=== PATIENT | male | born 1955 | race Caucasian/White ===

== ENCOUNTER → 2023-10-06 08:39 | Outpatient (REF) | payer OTHER, SELFPAY ==
[2023-10-06 08:50] VITALS: BP 137/80; BP_SYST 75
[2023-10-06 09:45] VITALS: BP 117/62; BP_SYST 71
[2023-10-06 10:01] VITALS: BP 126/74
[2023-10-06 11:38] LABS: Body Fluid Mononuclear 86.7 %; Body Fluid Polymorphonuclear 13.3 %; Body Fluid WBC 446 /CUMM
[2023-10-06 11:39] LABS: Body Fluid Second Tech SD
[2023-10-06 11:47] LABS: Body Fluid Albumin < 1.0 g/dl; Body Fluid Protein 2.1 g/dl
== END ==
LOC: RADI 08:39
PROVIDERS: ATTENDING PHYSICIAN Internal Medicine; FAMILY PHYSICIAN Family Medicine
DX: R18.8 Other ascites (principal)
CPT/HCPCS: 88305; 49083; 82042; 84157; 87015; 87070; 87205; 88112; 89051

== ENCOUNTER 2023-10-07 12:40 | Outpatient (RCR) | payer OTHER, SELFPAY | END 2023-10-07 23:59 | disposition home or self-care (01) | LOC: RPT 12:40 | PROVIDERS: ATTENDING PHYSICIAN Specialist; FAMILY PHYSICIAN Family Medicine | DX: C61 Malignant neoplasm of prostate (principal); M62.89 Other specified disorders of muscle; N39.3 Stress incontinence (female) (male); Z73.6 Limitation of activities due to disability | CPT/HCPCS: 97163; 97530 ==

== ENCOUNTER 2023-10-29 15:00 | Outpatient (RCR) | payer OTHER, SELFPAY | END 2023-10-29 23:59 | disposition home or self-care (01) | LOC: RPT 15:00 | PROVIDERS: ATTENDING PHYSICIAN Specialist; FAMILY PHYSICIAN Family Medicine | DX: C61 Malignant neoplasm of prostate (principal); M62.89 Other specified disorders of muscle; N39.3 Stress incontinence (female) (male); Z73.6 Limitation of activities due to disability; Z90.79 Acquired absence of other genital organ(s); Z98.890 Other specified postprocedural states | CPT/HCPCS: 97110; 97530 ==

== ENCOUNTER → 2023-11-11 10:16 | Outpatient (REF) | payer OTHER, SELFPAY | LOC: HWRAD 10:16 | PROVIDERS: ATTENDING PHYSICIAN Internal Medicine; FAMILY PHYSICIAN Family Medicine | DX: R18.8 Other ascites (principal) | CPT/HCPCS: 76700; 93975 ==

== ENCOUNTER → 2023-12-25 07:27 | Outpatient (REF) | payer OTHER, SELFPAY ==
[2023-12-25 07:47] VITALS: BP 148/67; BP_SYST 67
== END ==
LOC: RADI 07:27
PROVIDERS: ATTENDING PHYSICIAN Internal Medicine
DX: R18.8 Other ascites (principal); Z53.8 Procedure and treatment not carried out for other reasons
CPT/HCPCS: 76705

== ENCOUNTER → 2023-12-31 09:43 | Outpatient (REF) | payer OTHER, SELFPAY ==
[2023-12-31 13:04] LABS: % Eosinophils 4.6 % (0-6); % Immature Granulocytes 0.2 % (0-0.5); % Lymphocytes 17.3 % (20.5-51.1); % Monocytes 11.2 % (1.7-9.3); % Neutrophils 65.7 % (42.2-75.2); Absolute Eosinophils 0.2 10^3/uL (0-0.7); Absolute Lymphocytes 0.7 10^3/uL (1.2-3.4); Absolute Monocytes 0.5 10^3/uL (0.1-0.6); Absolute Neutrophils 2.7 10^3/uL (1.4-6.5); Hematocrit 35.3 % (39.0-52.0); Hemoglobin 11.7 g/dL (13.0-18.0); Mean Corp Hgb Conc. 33.1 g/dL (33.0-37.0); Mean Corpuscular Hgb 27.7 pg (27.0-31.0); Mean Corpuscular Volume 83.5 fL (80.0-94.0); Mean Platelet Volume 12.8 fL (7.4-10.4); Nucleated Red Blood Cells % 0 % (-); Platelet Count 56 10^3/uL (130-400); Red Blood Cell Count 4.23 10^6/uL (4.70-6.10); Red Cell Dist. Width 16.4 % (11.5-14.5); White Blood Cell Count 4.1 10^3/uL (4.8-10.8)
== END ==
LOC: HWLAB 09:43
PROVIDERS: ATTENDING PHYSICIAN Internal Medicine Hematology & Oncology; FAMILY PHYSICIAN Family Medicine
DX: D61.818 Other pancytopenia (principal); D50.9 Iron deficiency anemia, unspecified; D51.3 Other dietary vitamin B12 deficiency anemia; C61 Malignant neoplasm of prostate; C79.51 Secondary malignant neoplasm of bone
CPT/HCPCS: 36415; 85025

== ENCOUNTER → 2024-01-06 13:05 | Outpatient (REF) | payer OTHER, SELFPAY ==
[2024-01-06 16:01] LABS: % Basophils 0.9 % (0-2); % Eosinophils 4.7 % (0-6); % Immature Granulocytes 0.2 % (0-0.5); % Lymphocytes 19.9 % (20.5-51.1); % Monocytes 11.6 % (1.7-9.3); % Neutrophils 62.7 % (42.2-75.2); Absolute Eosinophils 0.2 10^3/uL (0-0.7); Absolute Lymphocytes 0.8 10^3/uL (1.2-3.4); Absolute Monocytes 0.5 10^3/uL (0.1-0.6); Absolute Neutrophils 2.7 10^3/uL (1.4-6.5); Hematocrit 34.6 % (39.0-52.0); Hemoglobin 11.4 g/dL (13.0-18.0); Mean Corp Hgb Conc. 32.9 g/dL (33.0-37.0); Mean Corpuscular Hgb 27.5 pg (27.0-31.0); Mean Corpuscular Volume 83.6 fL (80.0-94.0); Nucleated Red Blood Cells % 0 % (-); Platelet Count 57 10^3/uL (130-400); Red Blood Cell Count 4.14 10^6/uL (4.70-6.10); Red Cell Dist. Width 16.6 % (11.5-14.5); White Blood Cell Count 4.2 10^3/uL (4.8-10.8)
== END ==
LOC: HWLAB 13:05
PROVIDERS: ATTENDING PHYSICIAN Internal Medicine Hematology & Oncology; FAMILY PHYSICIAN Family Medicine
DX: D61.818 Other pancytopenia (principal); D50.9 Iron deficiency anemia, unspecified; D51.3 Other dietary vitamin B12 deficiency anemia; C61 Malignant neoplasm of prostate; C79.51 Secondary malignant neoplasm of bone
CPT/HCPCS: 36415; 85025

== ENCOUNTER → 2024-03-14 13:22 | Outpatient (REF) | payer OTHER, SELFPAY ==
[2024-03-14 15:53] LABS: % Eosinophils 4.1 % (0-6); % Immature Granulocytes 0.4 % (0-0.5); % Lymphocytes 15.8 % (20.5-51.1); % Monocytes 11.6 % (1.7-9.3); % Neutrophils 67.1 % (42.2-75.2); Absolute Basophils 0.1 10^3/uL (0-0.2); Absolute Eosinophils 0.2 10^3/uL (0-0.7); Absolute Lymphocytes 0.8 10^3/uL (1.2-3.4); Absolute Monocytes 0.6 10^3/uL (0.1-0.6); Absolute Neutrophils 3.2 10^3/uL (1.4-6.5); Hematocrit 35.9 % (39.0-52.0); Hemoglobin 12.3 g/dL (13.0-18.0); Mean Corp Hgb Conc. 34.3 g/dL (33.0-37.0); Mean Corpuscular Hgb 29.6 pg (27.0-31.0); Mean Corpuscular Volume 86.5 fL (80.0-94.0); Mean Platelet Volume 13.8 fL (7.4-10.4); Nucleated Red Blood Cells % 0 % (-); Platelet Count 63 10^3/uL (130-400); Red Blood Cell Count 4.15 10^6/uL (4.70-6.10); Red Cell Dist. Width 14.3 % (11.5-14.5); White Blood Cell Count 4.8 10^3/uL (4.8-10.8)
[2024-03-14 16:06] LABS: ALT (SGPT) 20 U/L (0-50); AST (SGOT) 30 U/L (17-59); Albumin 4.3 g/dl (3.5-5.0); Alkaline Phosphatase 41 U/L (38-126); Blood Urea Nitrogen 18 mg/dl (9-20); Calcium 9.6 mg/dl (8.4-10.2); Carbon Dioxide 27 mmol/L (22-30); Chloride 103 mmol/L (98-107); Glucose 104 mg/dl (70-99); Potassium 4.4 mmol/L (3.5-5.1); Sodium 138 mmol/L (135-145); Total Bilirubin 0.6 mg/dl (0.2-1.3); Total Protein 7.3 g/dl (6.3-8.2); eGFR > 60.00
[2024-03-14 16:36] LABS: PSA, Total - Diagnostic < 0.06 ng/ml (0.0-4.0)
== END ==
LOC: HWLAB 13:22
PROVIDERS: ATTENDING PHYSICIAN Internal Medicine Hematology & Oncology; FAMILY PHYSICIAN Family Medicine
DX: C79.51 Secondary malignant neoplasm of bone (principal); D61.818 Other pancytopenia; D50.9 Iron deficiency anemia, unspecified; C61 Malignant neoplasm of prostate
CPT/HCPCS: 36415; 80053; 84153; 85025

== ENCOUNTER → 2024-04-12 08:30 | Outpatient (REF) | payer OTHER, SELFPAY ==
[2024-04-12 08:54] VITALS: BP 149/82; BP_SYST 67
== END ==
LOC: RADI 08:30
PROVIDERS: ATTENDING PHYSICIAN Nurse Practitioner Family
DX: R18.8 Other ascites (principal); Z53.8 Procedure and treatment not carried out for other reasons
CPT/HCPCS: 76705

== ENCOUNTER → 2024-05-18 08:30 | Outpatient (REF) | payer OTHER, SELFPAY ==
[2024-05-18 08:48] LABS: % Basophils 0.8 % (0-2); % Eosinophils 3.6 % (0-6); % Immature Granulocytes 0.3 % (0-0.5); % Lymphocytes 16.7 % (20.5-51.1); % Monocytes 11.4 % (1.7-9.3); % Neutrophils 67.2 % (42.2-75.2); Absolute Eosinophils 0.1 10^3/uL (0-0.7); Absolute Lymphocytes 0.6 10^3/uL (1.2-3.4); Absolute Monocytes 0.4 10^3/uL (0.1-0.6); Absolute Neutrophils 2.4 10^3/uL (1.4-6.5); Hematocrit 36.3 % (39.0-52.0); Hemoglobin 12.7 g/dL (13.0-18.0); Mean Corpuscular Hgb 30.2 pg (27.0-31.0); Mean Corpuscular Volume 86.2 fL (80.0-94.0); Mean Platelet Volume 11.6 fL (7.4-10.4); Platelet Count 54 10^3/uL (130-400); Red Blood Cell Count 4.21 10^6/uL (4.70-6.10); Red Cell Dist. Width 13.7 % (11.5-14.5); White Blood Cell Count 3.6 10^3/uL (4.8-10.8)
[2024-05-18 10:14] LABS: ALT (SGPT) 23 U/L (0-50); AST (SGOT) 38 U/L (17-59); Albumin 4.5 g/dl (3.5-5.0); Alkaline Phosphatase 49 U/L (38-126); Blood Urea Nitrogen 25 mg/dl (9-20); Calcium 9.7 mg/dl (8.4-10.2); Carbon Dioxide 27 mmol/L (22-30); Chloride 100 mmol/L (98-107); Direct Bilirubin 0.3 mg/dl (0.0-0.4); Glucose 120 mg/dl (70-99); Sodium 140 mmol/L (135-145); Total Bilirubin 0.5 mg/dl (0.2-1.3); Total Protein 7.5 g/dl (6.3-8.2); eGFR > 60.00
[2024-05-18 10:15] LABS: INR 1.22; PT 15.4 Sec (11.4-14.6)
[2024-05-18 10:46] LABS: AFP Male/Tumor Marker 3.32 ng/ml
[2024-05-19 21:35] LABS: PSA Total <0.1 ng/mL (0.0-4.0)
== END ==
LOC: OIDL 08:30
PROVIDERS: ATTENDING PHYSICIAN Internal Medicine Hematology & Oncology; FAMILY PHYSICIAN Family Medicine; OTHER PHYSICIAN Nurse Practitioner Family
DX: D61.818 Other pancytopenia (principal)
CPT/HCPCS: 36415; 80053; 82105; 82248; 84153; 84154; 85025; 85610

== ENCOUNTER 2024-05-31 13:30 | Inpatient (IN) | payer OTHER, MEDICARE, SELFPAY ==
[2024-05-31] VITALS (29 sets, daily range): BP systolic 98–182; BP diastolic 52–166; BMI 32.9; BMI 32.3
[2024-05-31] MEDS: NSS 1000 IV ×2 (11:18→18:08)
[2024-05-31] MEDS: PROTONIX 100 IV ×2 (11:20→19:37)
[2024-05-31 11:32] LABS: INR 1.48; PT 17.8 Sec (11.4-14.6)
[2024-05-31 11:33] LABS: APTT 24.1 Sec (23.4-35.0)
[2024-05-31 11:35] LABS: ALT (SGPT) 22 U/L (0-50); AST (SGOT) 28 U/L (17-59); Albumin 3.4 g/dl (3.5-5.0); Alkaline Phosphatase 29 U/L (38-126); Blood Urea Nitrogen 47 mg/dl (9-20); Calcium 8.4 mg/dl (8.4-10.2); Carbon Dioxide 27 mmol/L (22-30); Chloride 103 mmol/L (98-107); Estimated Creatinine Clearance 115 ml/min; Glucose 185 mg/dl (70-99); Potassium 4.4 mmol/L (3.5-5.1); Sodium 138 mmol/L (135-145); Total Bilirubin 0.9 mg/dl (0.2-1.3); Total Protein 5.7 g/dl (6.3-8.2); eGFR > 60.00
[2024-05-31 11:36] LABS: % Basophils 0.6 % (0-2); % Eosinophils 1.1 % (0-6); % Immature Granulocytes 0.7 % (0-0.5); % Lymphocytes 7.9 % (20.5-51.1); % Monocytes 10.2 % (1.7-9.3); % Neutrophils 79.5 % (42.2-75.2); Absolute Basophils 0.1 10^3/uL (0-0.2); Absolute Eosinophils 0.1 10^3/uL (0-0.7); Absolute Immature Granulocytes 0.1 10^3/uL (0-0.05); Absolute Lymphocytes 0.7 10^3/uL (1.2-3.4); Absolute Monocytes 0.9 10^3/uL (0.1-0.6); Hematocrit 27.8 % (39.0-52.0); Hemoglobin 9.6 g/dL (13.0-18.0); Mean Corp Hgb Conc. 34.5 g/dL (33.0-37.0); Mean Corpuscular Hgb 30.1 pg (27.0-31.0); Mean Corpuscular Volume 87.1 fL (80.0-94.0); Nucleated Red Blood Cells % 0 % (-); Platelet Count 85 10^3/uL (130-400); Red Blood Cell Count 3.19 10^6/uL (4.70-6.10); Red Cell Dist. Width 14.3 % (11.5-14.5); White Blood Cell Count 8.8 10^3/uL (4.8-10.8)
[2024-05-31] MEDS: ZOFRAN 4 MG IV (11:39)
--- NOTE | 2024-05-31 11:44 | ED.GENMED ---
History of Present Illness
General
Chief Complaint: Vomiting Blood
Time Seen by Provider: 05/31/24 11:04
History of Present Illness
History of Present Illness:
68-year-old male with history of prostate CA, hyperlipidemia, hypertension presenting to the emergency department for vomiting blood. Patient reports that he vomited blood 3 times this morning, since 2 AM, large-volume. Also reports black stool.
Denies history of GI bleed. He is not on any blood thinners, denies excessive alcohol abuse or NSAID use. He reports he is on Erleada for his prostate, and since being on this medication has given him GI distress, however no GI bleed. Denies
associated abdominal pain, chest pain, difficulty breathing, however reports generally feeling unwell. Denies additional acute medical complaints
Past History
Past History
ED Past Medical History: CAD, HTN, Hypercholesterolemia and FL (2 stents on Brulenta)
ED Past Surgical History: Negative Cardiac
Social History
Tobacco: Non-smoker
Alcohol: Occasional
Drug: None
Personal:
Living: with family
Employment: Employed
Family History
Family History: Other (Noncontributory); Negative Early CAD
Phy Exam
Physical Exam
Physical Exam:
General: Slightly pale, no acute distress
HEENT: protecting airway
Neck: appears supple
CV: Tachycardic, regular rhythm, no evidence of cyanosis
Resp: No accessory muscle use, no increased work of breathing, lungs clear to auscultation bilaterally
Abd: Soft and non-distended, no tenderness to palpation, normal bowel sounds
Extremities: No deformities, no swelling
Neuro: alert, no focal neurologic deficit
: deferred
Rectal: deferred
Psych: Normal affect
Skin: Intact
Course
Orders/Labs/Results
Orders:
Orders
05/31/24 11:04
Cardiac Monitoring- Treatment ONCE
IV Insert/Care/Rem.- Treatment PRN
O2 Therapy [RESP] Urgent
Titrate/Wean O2 to maintain O2 sat greater than (%): 93
Special Instructions: MAINTAIN CONTINOUS O2 SATS > OR = 93%
Pulse Ox/spot Check [RESP] Urgent
Quantity: 1
Special Instructions: ON ROOM AIR
05/31/24 11:08
Type+Screen Urgent
Complete Blood Count/With Diff Urgent
Comprehensive Metabolic Panel Urgent
PTT Urgent
Prothrombin Time Urgent
05/31/24 11:11
0.9% Sodium Chloride 1000 ml [Nss] 1,000 ml IV BOLUS
Pantoprazole 80 mg/100 ml Nss [Protonix] 80 mg in 100 ml IV NOW
05/31/24 11:39
Ondansetron Injectable [Zofran] 4 mg .ROUTE .STK-MED ONE
Ondansetron Injectable [Zofran] 4 mg IV NOW STA
05/31/24 11:47
ABO2 Urgent
BBK Wristband Number:
Associate notified that ABO2 has been ordered: [id number]
Date: 05/31/24
Time: 11:22
Network Planner ID: [id number]
05/31/24 12:22
CefTRIAXone [Rocephin] 1,000 mg IV NOW STA
Octreotide 600 mcg INFUSION 50 mcg/hr NOW X 1 BAG Octreotide Acetate [Sandostatin] 600 mcg 0.9% Sodium Chloride 500 ml [Nss] 500 ml IV NOW
Abnormal Lab Results
05/31/24
11:08
RBC 3.19 L 10^6/uL
(4.70-6.10)
Hgb 9.6 L g/dL
(13.0-18.0)
Hct 27.8 L %
(39.0-52.0)
Plt Count 85 L 10^3/uL
(130-400)
Abs Immat Gran (auto) 0.1 H 10^3/uL
(0-0.05)
Absolute Neuts (auto) 7.0 H 10^3/uL
(1.4-6.5)
Absolute Lymphs (auto) 0.7 L 10^3/uL
(1.2-3.4)
Absolute Monos (auto) 0.9 H 10^3/uL
(0.1-0.6)
Immature Gran % 0.7 H %
(0-0.5)
Neutrophils % 79.5 H %
(42.2-75.2)
Lymphocytes % 7.9 L %
(20.5-51.1)
Monocytes % 10.2 H %
(1.7-9.3)
PT 17.8 H Sec
(11.4-14.6)
BUN 47 H mg/dl
(9-20)
Glucose 185 H mg/dl
(70-99)
Alkaline Phosphatase 29 L U/L
(38-126)
Total Protein 5.7 L g/dl
(6.3-8.2)
Albumin 3.4 L g/dl
(3.5-5.0)
05/31/24 11:08
05/31/24 11:08
Vital Signs
Initial and Last Documented VS:
Initial Vital Signs
BP
98/67
05/31/24 11:04
Last Documented Vital Signs
Temp Pulse Resp BP Pulse Ox
97.8 F 112 16 98/67 92
05/31/24 11:05 05/31/24 11:06 05/31/24 11:06 05/31/24 11:05 05/31/24 11:06
MDM/Problems Addressed
MDM/Problems Addressed:
68-year-old male with history of prostate cancer, hypertension, hyperlipidemia presenting for concern of GI bleed. Vital signs on arrival significant for hypotension and tachycardia.
On exam, patient with no active emesis, no significant distress, however does appear slightly pale. Unclear etiology of symptoms, no thinners, no excessive alcohol use, no NSAID use. Does note that he has been having issues with a medication that
he has been on, Erleda, unclear if this could be contributing to his symptoms. Will start resuscitation with IV fluids and obtain laboratory analysis. Will also start pantoprazole drip and consult with GI.
11:45 - Patient had large volume episode of hematemesis. Now resolved, protecting airway. Message sent to GI
12:20 -GI at bedside, patient is known to them. Patient with history of cirrhosis and ascites. Plan for endoscopy. Administering ceftriaxone and octreotide
*EKG
Interpreted by ED Provider?: Yes
EKG Intrepretation Date: 05/31/24
EKG Intrepretation Time: 11:49
Interpretation: normal
Comparison EKG: no changes (08/20/15)
Heart Rate: 109
Rate: tachycardiac
Rhythm: sinus
QRS Pattern: right bundle branch block and other (LAFB)
Ischemia: no ischemia
*Critical Care Note
Total Time (30-74mins, 75-104mins- exclusive of procedures): 40
comment:
The high probability of a clinically significant, sudden or life threatening deterioration of the gastrointestinal/GI bleed system(s) required my full and direct attention, intervention and personal management. The aggregate critical care time was
40 minutes. This time is in addition to time spent performing reported procedures but includes the following:
[x] Data Review and interpretation
[x] Patient assessment and monitoring of vital signs
[x] Documentation
[x] Medication orders and management
ED Attending Note
-
Portions of this chart may have been created with voice recognition software.� Occasional wrong word or��sound alike� substitutions may have occurred due to the inherent limitations of voice recognition software.
Discharge Plan
Departure
Prescriptions:
No Action
atorvastatin 40 MG tablet
40 mg PO QPM Qty: 30 6RF
aspirin 81 MG tablet,chewable
81 mg PO DAILY Qty: 0 0RF
lisinopril 2.5 MG tablet
2.5 mg PO DAILY Qty: 30 6RF
metoprolol tartrate 25 MG tablet
25 mg PO BID Qty: 60 6RF
ascorbic acid (vitamin C) [Vitamin C] 500 mg Tablet
500 mg PO BID
pantoprazole 40 mg Tablet,Delayed Release (Dr/Ec)
40 mg PO DAILY
folic acid 800 mcg Tablet
0.8 mg PO DAILY
cyanocobalamin (vitamin B-12) [Vitamin B-12] 100 mcg Tablet
100 mcg PO DAILY
furosemide 40 mg Tablet
40 mg PO DAILY
calcium carbonate-vitamin D3 [Calcium + D] 600 mg-5 mcg (200 unit) Tablet
1 tab PO BID
Erleada 60 mg Tablet
120 mg PO BID
spironolactone 100 mg tablet
100 mg PO DAILY
Referrals:
Braden Avila MD [Family Provider] -
Interventions
Interventions:
*Risk Screen - Suicide Last Done: 05/31/24 11:43
*Neglect/Abuse Screening Last Done: 05/31/24 11:43
*ED COVID-19 Vaccine History Last Done: 05/31/24 11:09
[facility] Assessment Last Done: 05/31/24 11:06
ED- Cardiac Assessment Last Done: 05/31/24 11:06
ED- Pulmonary Assessment Last Done: 05/31/24 11:06
Discharge Date and Time
Print Language: CAP[place] VERDEAN
--- NOTE | 2024-05-31 12:32 | HPS.HSE ---
Addendum entered and electronically signed by CARLY Bagley 05/31/24 14:29:
UPGRADE to ICU
Pt s/p Banding 5 esophageal varices
Original Note:
Family Physician
-
Family Physician: Braden Avila
Chief Complaint
-
Hemataemesis with clots
History of Present Illness
68-year-old male who states he came home from work last evening and was nauseous. He reports taking a Protonix not eating dinner and going to bed. He woke up during the night once to void and then woke up again this morning after voiding he stood
up he said and then started vomiting bright red blood with clots. He reports he had episode of vomiting blood with clots here while in the ED. He denies current headache, fever, chills, indigestion, chest pain, palpitations, shortness breath,
cough, diarrhea, urinary symptoms.
He has past medical history cirrhosis 2/2 hepatitis C treated greater than 15 years ago chronic thrombocytopenia, esophageal varices, HTN, prostate cancer Dx July 2023 with prostatectomy then repeat prostate borders with cancerous tissue. He
reports mets to bone November 2023 for started on hormonal agent, CAD/FL/cardiac stent 07/27/2015.
Medical History
Past Medical History
Past Medical History: Reports Other
Additional Past Medical History:
cirrhosis/ varices
chronic thrombocytopenia
esophageal varices
Prostate ca mets bone November 2023
HTN
prostate cancer current remission on current hormonal agent
CAD/FL/cardiac stent 07/27/2015
Hx RBBB
Iron deficiency anemia
Past Surgical History: Reports Other
Additional Past Surgical History:
Colonoscopy
Left hand with removal 8-6
Angioplasty with stenting 07/10/2015
Right knee scope 2018
prostatectomy /2 prostate ca July 2023
Social History
Tobacco: Non-smoker
Alcohol: Occasional (Had 1 drink of 1 proximally 5 weeks ago reports prior only was ever a social drinker)
Personal:
Living: With Family ()
Employment: Employed
Family History
Family History: Other (Mother history of ovarian cancer in her 80s, father history of prostate cancer in his 50s at 81 of leukemia)
Allergies / Home Medications
Allergies reflects when Allergies were last updated in [facility].
Home Medications with original date entered in [facility]
Allergy/Medication List:
Allergies
Allergy/AdvReac Type Severity Reaction Status Date / Time
No Known Allergies Allergy Verified 04/12/24 09:04
Home Medications
aspirin 81 mg chewable tablet 81 mg PO DAILY ##0 08/11/15
atorvastatin 40 mg tablet 40 mg PO QPM ##30 08/11/15
lisinopril 2.5 mg tablet 2.5 mg PO DAILY ##30 08/11/15
metoprolol tartrate 25 mg tablet 25 mg PO BID ##60 08/11/15
ascorbic acid (vitamin C) 500 mg tablet (Vitamin C) 500 mg PO BID Supplement 07/24/23
folic acid 800 mcg tablet 0.8 mg PO DAILY Supplement 07/24/23
pantoprazole 40 mg tablet,delayed release 40 mg PO DAILY Gastrointestinal Issue 07/24/23
cyanocobalamin (vitamin B-12) 100 mcg tablet (Vitamin B-12) 100 mcg PO DAILY 10/06/23
apalutamide 60 mg tablet (Erleada) 120 mg PO BID 12/25/23
calcium 600 mg (as carbonate)-vitamin D3 5 mcg (200 unit) tablet 1 tab PO BID 12/25/23
furosemide 40 mg tablet 40 mg PO DAILY 12/25/23
spironolactone 100 mg tablet 100 mg PO DAILY 05/31/24
Review of Systems
-
History Source: Patient and Family ( Shirin at bedside)
A 12 point ROS was completed and negative except as noted: Yes
Constitutional: Denies Fever, Fatigue or Chills
EENT: Denies Sore Throat or Runny Nose
Respiratory: Denies Cough or Trouble Breathing
Cardiac: Denies Chest Pain, Diaphoresis, Palpitations or Syncope
Abdomen/GI: Reports Nausea and Vomiting (Bright red blood with clots); Denies Abdominal Pain, Diarrhea, Constipated, Bloody Stools or Black Stools
: Denies Dysuria, Frequency, Flank Pain, Incontinence, Difficulty Voiding or Urgency
Musculoskeletal: Denies Joint Pain, Joint Swelling or Edema
Skin: Denies Itching or Rash
Neurological: Denies Dizzy, Headache or Weakness
Endocrine: Reports No Symptoms
Hematologic/Lymphatic: Reports No Symptoms
Psych: Reports Calm
Physical Exam
Vital Signs
Vital Signs
Temp Pulse Resp BP Pulse Ox
97.8 F 112 16 98/67 92
05/31/24 11:05 05/31/24 11:06 05/31/24 11:06 05/31/24 11:05 05/31/24 11:06
Physical Exam
General: Comfortable and Conversant; No Fever or Chills
HEENT: NormoCephalic, Anicteric, Moist mucous membranes, PERRLA, [place] Conjunctivae and No Ptosis
Respiratory: Clear; No Wheezes, Rales or Rhonchi
Cardiac: S1/S2 and Tachycardia; No Murmur, Rub, Gallop or Peripheral Edema
GI: Soft, Non Tender, Non Distended, Normal Bowel Sounds and No Hepatosplenomegaly
Rectal: Deferred by Provider
Genito-urinary: Deferred by me
Musculoskeletal: No Clubbing, No Cyanosis and No Edema
Skin: Warm and Dry; No Rash or Jaundice
Neuro: AO x 3, No Motor Deficits, Nonfocal/grossly intact and No Sensory Deficits; No Slurred Speech, Facial Droop, Tremors or Sedated
Psych: Calm
Laboratory Results
-
05/31/24 11:08
05/31/24 11:08
Laboratory Results
PT 17.8 Sec (11.4-14.6) H 05/31/24 11:08
INR 1.48 05/31/24 11:08
APTT 24.1 Sec (23.4-35.0) 05/31/24 11:08
Total Bilirubin 0.9 mg/dl (0.2-1.3) 05/31/24 11:08
AST 28 U/L (17-59) 05/31/24 11:08
ALT 22 U/L (0-50) 05/31/24 11:08
Alkaline Phosphatase 29 U/L (38-126) L 05/31/24 11:08
Impression/Plan
-
Impression/plan:
Admit to IMU
#Hematemesis concern upper GI bleed 2/2 possible esophageal varices
#Hx esophageal varices 11/19/2021 EGD
#Hx iron deficiency
Hgb 9.6
Type and screen, obtain blood consent
-N.p.o. for EGD today
-IV PPI bolus and drip
-Octreotide drip
-IV Rocephin
-Consult GI
-Follow H&H
-Hold aspirin 81 mg daily
EGD 11/19/2021: Esophageal varices without bleeding, portal HTN, duodenitis without bleeding, neoplasm uncertain behavior small intestine
#Hypotension secondary to blood volume loss
BP 98/67
-Hold furosemide 40 mg daily, lisinopril 2.5 mg daily, Toprol tartrate 25 mg twice daily, spironolactone 100 mg p.o. daily
#Chronic thrombocytopenia secondary to cirrhosis
Plt 85 prior baselines mid 50s
Follow CBC
#Cirrhosis 2/2 Hep C
#Hx Ascites
-Patient reports had 1 glass of wine a few weeks ago otherwise reports only ever occasionally drank
-Reports was treated for hepatitis C approximately 15 years ago
-Hold Lasix, spironolactone due to hypotension
#Prostate cancer Dx July 2023 mets to pelvis November 2023
-Hold Erleada
#CAD/FL
#RBBB
#Hx angioplasty with stenting 07/10/2015
-Hold aspirin 81 mg daily, atorvastatin 40 mg every afternoon, metoprolol tartrate 25 mg twice daily
DVT prophylaxis
SCDs
Full code
[2024-05-31] MEDS: ROCEPHIN 1000 MG IV (12:37)
--- NOTE | 2024-05-31 12:40 | CON.GI ---
Addendum entered and electronically signed by Delon Granda MD 05/31/24 14:01:
I saw and examined the patient.
The COMMUNITY HEALTH PROGRAM COORDINATOR or PA's note was reviewed and I agree with the note.
Comment:
Pt known to us as outpatient with ESLD with ascites that developed after prostatectomy. Hx of varices grade 2 back in 05/29. He does see hepatology (Dr. Agrawal) as well. He had refused an endoscopy due to treatment for metastatic prostate ca. He
came to the ER with acute hematemesis and has had 4 episodes. hypotension, hgb 9.8. He has small amount of ascites by past u/s
abd: soft, nontender
alert oriented
impression:
UGI bleed, likely variceal
ascites
ESLD
prostate ca
plan:
IV PPI ggt
IV octreotide
urgent EGD
avoid nsaids
ceftriaxone
monitor coags, cbc and lfts
Original Note:
Consultation
-
Date/Time Consultation Requested: 05/31/241214
Date/Time Consultation Performed: 05/31/241214
Requesting Provider: Dr. Byrnes
Performing Provider: Dr. Granda/CARLY Irene
Reason for Consultation: Upper GI Bleed
Medical History
Chief Complaint / HPI
Chief Complaint: vomiting blood
History of Present Illness:
68-year-old male with past medical history of decompensated cirrhosis (ascites/varices), on beta-rosa and diuretics due to hepatitis C which was cured in the past, no history of encephalopathy, history of portal vein thrombosis, thrombocytopenia,
history of metastatic prostate cancer status post prostatectomy with mets to the bone currently on hormone therapy (Erleada) with undetectable PSA who presents to the ER with acute onset of hematemesis and melena asked to evaluate for the same. The
patient states this morning he had 2 large episodes of hematemesis. This was followed by an episode of melena. He is on aspirin 81 mg daily otherwise no NSAIDs. He denies any chest pain, shortness of breath or dizziness. He proceeded to come to
the emergency room. While in the emergency room he did have a large volume of projectile hematemesis. His vital signs are stable. He had 1 glass of wine a couple weeks back otherwise no significant alcohol intake. His last appoint with Dr. Agrawal
was a few months back. His last appoint with hematology was in March. He denies any fevers, chills, hematochezia, dysphagia or dyne aphasia. No early satiety or unintentional weight loss. The patient is currently afebrile 97.8, pulse 112, BP
98/67, respirations 16 and O2 sat 92% on room air. WBC count 8.8, hemoglobin 9.6 (down from 12.7 on 05/18/2024), hematocrit 27.8, platelets 85, PT 17.8, INR 1.48, PTT 24.1, sodium 138, potassium 4.4, chloride 103, CO2 27, BUN 47, creatinine 0.8,
glucose 185, total bilirubin 0.9, AST 28, ALT 22, alk phos 29, albumin 3.4
Past Medical History
Past Medical History: CAD (Drug-eluting stent (2014)), Cancer (Prostate cancer with mets to bone), HTN, Hypercholesterolemia and Other (Cirrhosis secondary to hepatitis C, ascites, esophageal varices, thrombocytopenia)
Past Surgical History: Urological (Robotic prostatectomy, reclosure of 2 robotic trocar sites due to leaking of ascites 08/12/2023, paracentesis) and Other (Radical prostatectomy, umbilical hernia repair, bladder neck reconstruction and lymph node
removal)
Social History
Tobacco: Non-Smoker
Alcohol: Occasional
Drug: None
Personal:
Living: With Family
Employment: Retired
Family History
Family History: Other (Mother and father with history of colon cancer)
Allergies / Home Medications
Allergy/AdvReac Type Severity Reaction Status Date / Time
No Known Allergies Allergy Verified 04/12/24 09:04
�Medication �Instructions �Recorded
aspirin 81 mg chewable tablet 81 mg PO DAILY ##0 08/11/15
atorvastatin 40 mg tablet 40 mg PO QPM ##30 08/11/15
lisinopril 2.5 mg tablet 2.5 mg PO DAILY ##30 08/11/15
metoprolol tartrate 25 mg tablet 25 mg PO BID ##60 08/11/15
ascorbic acid (vitamin C) 500 mg 500 mg PO BID Supplement 07/24/23
tablet (Vitamin C)
folic acid 800 mcg tablet 0.8 mg PO DAILY Supplement 07/24/23
pantoprazole 40 mg tablet,delayed 40 mg PO DAILY Gastrointestinal 07/24/23
release Issue
cyanocobalamin (vitamin B-12) 100 100 mcg PO DAILY 10/06/23
mcg tablet (Vitamin B-12)
apalutamide 60 mg tablet (Erleada) 120 mg PO BID 12/25/23
calcium 600 mg (as 1 tab PO BID 12/25/23
carbonate)-vitamin D3 5 mcg (200
unit) tablet
furosemide 40 mg tablet 40 mg PO DAILY 12/25/23
spironolactone 100 mg tablet 100 mg PO DAILY 05/31/24
Review of Systems
-
All other systems: A 12 pt ROS was Negative except as stated above in HPI
Vital Signs
Temp Pulse Resp BP Pulse Ox
97.8 F 112 16 98/67 92
05/31/24 11:05 05/31/24 11:06 05/31/24 11:06 05/31/24 11:05 05/31/24 11:06
Physical Exam
Exam
General: No Apparent Distress
HEENT: Anicteric
Respiratory: Clear
Cardiac: Regular Rhythm
GI: Soft, Non Tender, Non Distended and Normal Bowel Sounds
Musculoskeletal: Edema (Trace edema bilaterally, petechiae bilateral lower extremities)
Skin: Warm and Dry
Neuro: AO x 3 and Other (No asterixis)
Psych: Calm
Results
WBC 8.8 10^3/uL (4.8-10.8) 05/31/24 11:08
Hgb 9.6 g/dL (13.0-18.0) L 05/31/24 11:08
Hct 27.8 % (39.0-52.0) L 05/31/24 11:08
MCV 87.1 fL (80.0-94.0) 05/31/24 11:08
Plt Count 85 10^3/uL (130-400) L 05/31/24 11:08
Absolute Neuts (auto) 7.0 10^3/uL (1.4-6.5) H 05/31/24 11:08
PT 17.8 Sec (11.4-14.6) H 05/31/24 11:08
INR 1.48 05/31/24 11:08
APTT 24.1 Sec (23.4-35.0) 05/31/24 11:08
Sodium 138 mmol/L (135-145) 05/31/24 11:08
Potassium 4.4 mmol/L (3.5-5.1) 05/31/24 11:08
Chloride 103 mmol/L (98-107) 05/31/24 11:08
Carbon Dioxide 27 mmol/L (22-30) 05/31/24 11:08
BUN 47 mg/dl (9-20) H 05/31/24 11:08
Creatinine 0.8 mg/dL (0.7-1.3) 05/31/24 11:08
Calcium 8.4 mg/dl (8.4-10.2) 05/31/24 11:08
Total Bilirubin 0.9 mg/dl (0.2-1.3) 05/31/24 11:08
AST 28 U/L (17-59) 05/31/24 11:08
ALT 22 U/L (0-50) 05/31/24 11:08
Alkaline Phosphatase 29 U/L (38-126) L 05/31/24 11:08
Diagnostic Image Results:
None this admission
Prior GI Procedures:
--04/12/2024 ultrasound abdomen: Mild volume of ascites not sufficient for percutaneous drainage
--11/11/2023 US abdomen with doppler: Main portal vein is patent with normal direction of flow. No evidence for portal vein thrombosis on today's exam. Not mentioned above, the right and left portal veins are visualized and patent. 4 mm polyp within
the gallbladder. Given size and morphology, no further imaging follow-up is recommended for this benign polyp. Coarsening of hepatic echotexture, a nonspecific finding suggesting hepatocellular disease. No evidence of a focal hepatic lesion.
Splenomegaly, similar to prior exams. No ascites is demonstrated on today's exam. Limited visualization of the pancreas.�������
--10/29/2023 PET scan: multiple lesions seen throughout the skeletal bone.�������
--10/06/23 paracentesis: 4600mL removed, clear yellow ascitic fluid. WBC 446, PMN 13.3�������
--09/30/23 labs: WBC 3.3, hgb 11.9, plt 70,000, INR 1.25, Na 138, K 3.9, BUN 21, Cr 0.6, TB 1.1, AST33, ALT 27, Alk phos 61, AFP 2.91, PSA 117.0�������
--11/19/2021 EUS: EV1 varices. Duodenitis w/o duodenal varices, otherwise normal EUS�������
--11/19/2021 EGD: Grade II esophageal varices. Portal hypertensive gastropathy. Biopsied. Duodenitis. Biopsied. Pathnegative for H pylori, celiac.�������
--02/28/2020 colonoscopy, Dr. Tong: One 18 to 20 mm polyp in the sigmoid colon, removed�with a hot snare. Resected and retrieved. Ligated. Injected. Clips were placed. One 3 to 4 mm polyp in the descending colon, removed with a jumbo cold
forceps. Resected and retrieved. Clip was placed. Diverticulosis in the sigmoid colon, in the descending colon, in the transverse colon and in the cecum. Rectal varices. The examined portion of the ileum was normal. One hyperplastic polyp, one TV
adenoma with negative margins.�������
--10/04/2019 EGD: Grade II esophageal varices. Z-line irregular, 40 cm from the incisors. Nodule found in the esophagus. Gastritis. Biopsied. No Gastric Varices. Grade II duodenal varices. Normal second portion of the duodenum. Biopsied. Path
negative.
Assessment / Plan
-
68-year-old male with past medical history of decompensated cirrhosis (ascites/varices), on beta-rosa and diuretics due to hepatitis C which was cured in the past, no history of encephalopathy, history of portal vein thrombosis, thrombocytopenia,
history of metastatic prostate cancer status post prostatectomy with mets to the bone currently on hormone therapy (Erleada) with undetectable PSA who presents to the ER with acute onset of hematemesis and melena asked to evaluate for the same. Last
EGD was in 2021 where he had grade 2 esophageal varices. Portal hypertensive gastropathy. Currently presents with 3 large episodes of hematemesis concerning for esophageal variceal bleed. Hemoglobin is currently 9.6 down from 12.7 approximate 11
days ago with tachycardia and hypotension. Discussed with patient, , ER physician and admitting team. Plan for admission to IMU. Protonix drip, octreotide bolus and drip, 2 large-bore IV access, ceftriaxone, n.p.o. and plan for emergent EGD.
Patient is currently NPO. Patient agreeable. Blood consent obtained by internal medicine. Patient has been crossmatched.
Impression:
Upper GI bleed-> concerns for variceal bleed
Cirrhosis, decompensated with history of varices/ascites-> MELD 10
Thrombocytopenia-> platelets 85
History of metastatic prostate cancer, on Erleada
Plan:
-N.p.o.
-Pantoprazole drip
-Octreotide bolus/drip
-Ceftriaxone 1 g daily IV
-Plan for EGD today
-Check CBC every 6 hours, transfuse for hemoglobin less than 7
-CBC, BMP, LFTs, PT/INR in a.m.
-Further recommendations to be forthcoming
-
-
Thank you for consultation and allowing me to participate in the patient's care. Please call the hot wound spring production supervisor GI physician during the after hours with any questions or concerns.
[2024-05-31] MEDS: SANDOSTATIN 500.6 MCG IV ×2 (13:30→23:47)
--- NOTE | 2024-05-31 13:44 | W.PN.UPDATE ---
Update Note
Progress Note Update
This is an addendum to the H&P written by Monica Shelby on 05/31/2024. Patient seen and examined independently with SCIENCE EDUCATION PROFESSOR.
68-year-old male past medical history of decompensated cirrhosis with varices secondary to hepatitis C cured in the past, history of portal vein thrombosis, thrombocytopenia, metastatic prostate cancer status post prostatectomy with metastases to
bone currently on hormone therapy with Nicole CAD presenting with hematemesis and black stool concerning for variceal bleeding associated with blood pressure in the 90s systolic. Hemoglobin of 9.6.
NPO. IV fluids given. Protonix drip. Octreotide drip. Ceftriaxone. GI to take for endoscopy today. Hold all medications including hypertensive medications, Lasix/spironolactone and metoprolol and aspirin.
[2024-05-31] MEDS: REGLAN 10 MG IV (15:05)
[2024-05-31] MEDS: DILAUDID 0.25 MG IV (15:06)
--- NOTE | 2024-05-31 15:23 | CON.INTV ---
Addendum entered and electronically signed by Mike Pina MD 05/31/24 18:30:
Start maintenance IVF with NS 0.9% at 90 cc/hr (rate dose by ideal body weight) - with stop date to avoid hypervolemia
Original Note:
Consultation
Consultation Request
Date/Time Consultation Requested: 05/31/2024 - 1456
Date/Time Consultation Performed: 05/31/2024 - 1517
Requesting Provider: CARLY Bagley
Performing Provider: Mike Pina MD
Reason for Consultation: UGIB/s/p banding
Medical History
-
Chief Complaint: Nausea/vomiting blood/tarry stools
History of Present Illness:
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
NADJA (2014) who presents with nausea, bloody vomitus + tarry stools. Patient follows with GI as an outpatient. He developed end-stage liver disease with ascites after he had a prostatectomy. He has a history of grade 2 varices in 2021. He follows
with hepatology. He does take aspirin 81 mg daily otherwise denies taking any other blood thinners. He denies any chest pain or shortness of breath or lightheadedness. He had projectile hematemesis while in the ER. Patient does not have
significant alcohol intake although admits to drinking 1 glass of wine a few weeks ago. In the ER he was afebrile to 97.8 �F, pulse rate 109, breathing at 16 breaths minute, BP 98/67 and saturating 92% on room air. Labs showed Hb 9.6, platelets
85, BUN 47, and glucose 185. He was given ceftriaxone in the ER, IVF with 1 L NS 0.9%, Zofran and started on Protonix drip + octreotide drip. Patient was admitted to the hospitalist service with GI consulted who brought the patient urgently for
EGD. EGD performed showing large grade 4 varices in the entire esophagus with an adherent clot at the GEJ at the base of one of the varices. 5 bands were successfully placed with incomplete eradication of the varices. There was no bleeding during
the procedure. Hematin was found in the gastric fundus and the body of the stomach with old clots with no obvious gastric varices. The duodenum appeared normal. The patient was then transferred to the ICU for further care and net development manager services
consulted for additional management/recommendations.
When I saw the patient he was resting in bed in no acute distress. He was on room air breathing comfortably saturating 97%. BP 122/68 and heart rate 94. He does endorse right flank abdominal pain. Otherwise she denies chest pain, WILSON, fevers or
chills. His , Nitza, was at bedside and all questions were answered.
PMHx: Chronic hepatitis C complicated by cirrhosis + ascites + EV, CAD s/p PTCA with NADJA (2014), HCV s/p Harvoni, splenomegaly, osteopenia, thrombocytopenia, prostate cancer with mets to bone on Erleada, history of portal vein thrombosis
PHSx: Umbilical hernia repair, coronary stent
Past Medical History
Past Medical History: Other (Above as per HPI)
Past Surgical History: Other (Above as per HPI)
Social History
Tobacco: Non-smoker
Alcohol: None
Drug: None
Personal:
Living: With Family
Family History
Family History: Cancer (Mother + father: Colon cancer; father: Leukemia + prostate cancer)
Allergies / Home Medications
Allergies
Allergy/AdvReac Type Severity Reaction Status Date / Time
No Known Allergies Allergy Verified 04/12/24 09:04
Home Medications
�Medication �Instructions �Recorded �Confirmed �Last Taken �Type
aspirin 81 mg chewable tablet 81 mg PO DAILY ##0 08/11/15 05/31/24 05/30/24 08:00 Rx
atorvastatin 40 mg tablet 40 mg PO QPM ##30 08/11/15 05/31/24 05/29/24 Rx
lisinopril 2.5 mg tablet 2.5 mg PO DAILY ##30 08/11/15 05/31/24 05/30/24 08:00 Rx
metoprolol tartrate 25 mg tablet 25 mg PO BID ##60 08/11/15 05/31/24 05/30/24 08:00 Rx
ascorbic acid (vitamin C) 500 mg 500 mg PO BID Supplement 07/24/23 05/31/24 05/30/24 08:00 History
tablet (Vitamin C)
folic acid 800 mcg tablet 0.8 mg PO DAILY Supplement 07/24/23 05/31/24 05/30/24 08:00 History
pantoprazole 40 mg tablet,delayed 40 mg PO DAILY Gastrointestinal 07/24/23 05/31/24 05/30/24 08:00 History
release Issue
cyanocobalamin (vitamin B-12) 100 100 mcg PO DAILY 10/06/23 05/31/24 05/30/24 08:00 History
mcg tablet (Vitamin B-12)
apalutamide 60 mg tablet (Erleada) 120 mg PO BID 12/25/23 05/31/24 05/30/24 08:00 History
calcium 600 mg (as 1 tab PO BID 12/25/23 05/31/24 05/30/24 08:00 History
carbonate)-vitamin D3 5 mcg (200
unit) tablet
furosemide 40 mg tablet 40 mg PO DAILY 12/25/23 05/31/24 05/30/24 08:00 History
spironolactone 100 mg tablet 100 mg PO DAILY 05/31/24 05/31/24 05/30/24 08:00 History
Review of Systems
-
History Source: Patient
All other systems: Negative unless noted
Vitals / Labs / Diagnostic Testing
Vital Signs
Temp Pulse Resp BP Pulse Ox
97.5 F 93 12 132/63 97
05/31/24 14:23 05/31/24 15:15 05/31/24 15:15 05/31/24 15:15 05/31/24 14:45
Lab Data
05/31/24 11:08
Laboratory Results
05/31/24
11:08
PT 17.8 H
INR 1.48
APTT 24.1
Diagnostic Testing:
Physical Exam
-
HEENT: Normocephalic and Anicteric
Cardiovascular: S1/S2 and Peripheral Edema (negative)
Respiratory: Wheeze (negative), Rales (negative), Rhonchi (negative) and Non-Labored Respirations
GI: Soft, Non Distended, Tender (RLQ) and Normal Bowel Sounds
Neurology: Awake, Alert and Tremors (negative)
Skin: Warm and Dry
General: Respiratory Distress (negative), Pain (RLQ abdomen), Chills (negative) and Sweats (negative)
Assessment
-
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
Harvoni and CAD s/p NADJA (2014) who presents with nausea, bloody vomitus + tarry stools. Patient follows with GI as an outpatient. He developed end-stage liver disease with ascites after he had a prostatectomy. He has a history of grade 2 varices
in 2021. He follows with hepatology. He does take aspirin 81 mg daily otherwise denies taking any other blood thinners. He denies any chest pain or shortness of breath or lightheadedness. He had projectile hematemesis while in the ER. Patient
does not have significant alcohol intake although admits to drinking 1 glass of wine a few weeks ago. In the ER he was afebrile to 97.8 �F, pulse rate 109, breathing at 16 breaths minute, BP 98/67 and saturating 92% on room air. Labs showed Hb
9.6, platelets 85, BUN 47, and glucose 185. He was given ceftriaxone in the ER, IVF with 1 L NS 0.9%, Zofran and started on Protonix drip + octreotide drip. Patient was admitted to the hospitalist service with GI consulted who brought the patient
urgently for EGD. EGD performed on 05/31/2024 showing large grade 4 varices in the entire esophagus with an adherent clot at the GEJ at the base of one of the varices. 5 bands were successfully placed with incomplete eradication of the varices.
There was no bleeding during the procedure. Hematin was found in the gastric fundus and the body of the stomach with old clots with no obvious gastric varices. The duodenum appeared normal. 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
care and net development manager services consulted for additional management/recommendations.
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
thrombosis
Impression:
#Upper gastrointestinal hemorrhage due to esophageal varices s/p banding X5 with incomplete eradication of varices (EGD performed 05/31/2024)
#Acute blood loss anemia due to above (baseline Hb 10.5-12g/dL)
#Hyperglycemia
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
#History of PVT
#Thrombocytopenia (baseline plt count: 55-70)
#History of metastatic prostate cancer s/p prostatectomy with bony mets currently on hormone therapy with Erleada
#CAD s/p NADJA to mid-RCA (August 2015)
Plan:
- Large bore IV x2
- PPI gtt + octreotide gtt
- Serial H/H and transfuse if needed to keep Hb>7; avoid over-transfusing as this can cause rupture of esophageal varices
- Keep plt>50k
- Hold all anticoagulants/antiplatelets for now
- Maintain MAP>65
- Maintain SpO2 >90-94% with supplemental O2 as needed
- Diet deferred to GI - currently NPO
- Rocephin 1g once daily x 7 days
- Aspiration precautions
- Anti-emetics prn (trend QTc: 503ms today)
- Pain control
- Replete electrolytes with K>4, Mg>2
- Maintain euglycemia with goal BG 140-180
- Check A1C
- prn nebulized bronchodilators - pt not currently bronchospastic
- Incentive spirometer encouraged 10x per hour for at least 4 hrs a day
- DVT ppx: SCDs; hold off on chemical prophylaxis for now given acute UGIB
Critical care statement: A total of 40 minutes of critical care time was provided for this patient today. This includes management of unstable vital signs, evaluation of the patient at bedside, reviewing the patient's pertinent medical records
including radiographs, microbiology, laboratory evaluations, and discussion with primary team, consultants, pharmacy, nutrition, physical therapy, case management, charge nurse, critical care nursing, and respiratory therapy.
--- NOTE | 2024-05-31 17:23 | PTCARENOTE ---
Received pt via stretcher from PACU into ICU rm [id number] @ 1700. Pt. moved self from stretcher to bed. Ox3, c/o mod abd pain; described as 'throbbing.' Dr. Pina made aware. SR w 1st degree AVD and BBB. SpO2 97% on RA. Afebrile. +BS, abd
round/obese/tender. Strict NPO maintained. Inc of bladder @ x's. #18 L AC w Sandostatin gtt and #18 R AC w Protonix gtt- see MAR/flow sheet. Pt. instructed on how to report care concerns and call alaniz in reach. Pt.'s sister and to bedside,
updated.
[2024-05-31] MEDS: DILAUDID 0.5 MG IV ×2 (18:08→22:29)
[2024-05-31 18:27] LABS: Hematocrit 24.3 % (39.0-52.0); Hemoglobin 8.5 g/dL (13.0-18.0)
[2024-05-31 19:32] LABS: Magnesium 1.7 mg/dl (1.6-2.3); Phosphorus 2.6 mg/dl (2.5-4.5)
--- NOTE | 2024-05-31 20:00 | PTCARENOTE ---
Rec'd pt resting in bed, abd pain improved after dilaudid given previous shift, follows commands, SR w/ BBB, prol QT, bp stable, weak distal pulses, Tr LE edema, skin warm/dry, RA, lungs decr in bases, sat 95, + bowel sounds, no bm, abd obese, soft/
tender to palpation, voided in urinal, sandostatin gtt & prot gtt cont
[2024-05-31 21:18] LABS: Hematocrit 23.4 % (39.0-52.0); Hemoglobin 8.1 g/dL (13.0-18.0); Mean Corp Hgb Conc. 34.6 g/dL (33.0-37.0); Mean Corpuscular Hgb 29.5 pg (27.0-31.0); Mean Corpuscular Volume 85.1 fL (80.0-94.0); Mean Platelet Volume 12.8 fL (7.4-10.4); Platelet Count 65 10^3/uL (130-400); Red Blood Cell Count 2.75 10^6/uL (4.70-6.10); Red Cell Dist. Width 14.7 % (11.5-14.5); White Blood Cell Count 7.2 10^3/uL (4.8-10.8)
--- NOTE | 2024-05-31 22:30 | PTCARENOTE ---
Dilaudid 0.5 mg iv given for abd pain, R midline inserted by IV team
--- NOTE | 2024-05-31 23:52 | PTCARENOTE ---
sys reviewed, changes noted, pain improved after dilaudid, CHG bath done, linens changed
[2024-06-01] VITALS (25 sets, daily range): BP systolic 106–163; BP diastolic 48–107; BMI 32.4
[2024-06-01] MEDS: DILAUDID 0.5 MG IV ×5 (02:16→22:13)
--- NOTE | 2024-06-01 02:22 | PTCARENOTE ---
dilaudid 0.5 mg iv given for RLQ pain
[2024-06-01 03:04] LABS: % Basophils 0.3 % (0-2); % Eosinophils 1.8 % (0-6); % Immature Granulocytes 0.4 % (0-0.5); % Monocytes 9.7 % (1.7-9.3); % Neutrophils 72.8 % (42.2-75.2); Absolute Eosinophils 0.1 10^3/uL (0-0.7); Absolute Monocytes 0.7 10^3/uL (0.1-0.6); Absolute Neutrophils 4.9 10^3/uL (1.4-6.5); Hematocrit 21.8 % (39.0-52.0); Hemoglobin 7.5 g/dL (13.0-18.0); Mean Corp Hgb Conc. 34.4 g/dL (33.0-37.0); Mean Corpuscular Hgb 29.3 pg (27.0-31.0); Mean Corpuscular Volume 85.2 fL (80.0-94.0); Mean Platelet Volume 12.6 fL (7.4-10.4); Nucleated Red Blood Cells % 0 % (-); Platelet Count 63 10^3/uL (130-400); Red Blood Cell Count 2.56 10^6/uL (4.70-6.10); Red Cell Dist. Width 14.8 % (11.5-14.5); White Blood Cell Count 6.7 10^3/uL (4.8-10.8)
--- NOTE | 2024-06-01 03:19 | PTCARENOTE ---
Gale Sanon NP aware of hgb 7.5; to recheck at 1000
[2024-06-01 03:42] LABS: ALT (SGPT) 20 U/L (0-50); AST (SGOT) 28 U/L (17-59); Albumin 3.1 g/dl (3.5-5.0); Alkaline Phosphatase 27 U/L (38-126); Blood Urea Nitrogen 45 mg/dl (9-20); Calcium 7.6 mg/dl (8.4-10.2); Carbon Dioxide 25 mmol/L (22-30); Chloride 108 mmol/L (98-107); Estimated Creatinine Clearance 114 ml/min; Glucose 127 mg/dl (70-99); Magnesium 1.8 mg/dl (1.6-2.3); Phosphorus 4.1 mg/dl (2.5-4.5); Potassium 4.5 mmol/L (3.5-5.1); Sodium 142 mmol/L (135-145); Total Bilirubin 0.4 mg/dl (0.2-1.3); Total Protein 5.5 g/dl (6.3-8.2); eGFR > 60.00
--- NOTE | 2024-06-01 04:08 | PTCARENOTE ---
sys reviewed, changes noted
[2024-06-01] MEDS: NSS 1000 IV (04:36)
[2024-06-01] MEDS: PROTONIX 100 IV ×2 (04:36→15:44)
--- NOTE | 2024-06-01 07:16 | W.PN.HOSP.TC ---
Addendum entered and electronically signed by Cris Perrin MD 06/01/24 21:32:
I saw and evaluated the patient independently. I reviewed the resident�s note and agree with findings and plan as documented by Dr. Villalta.
GENERAL: well developed, well nourished, male in no apparent distress
HEENT:NC/AT--pale appearing
HEART: regular rate and rhythm, +S1, +S2
LUNGS : clear to auscultation bilaterally
ABDOM: soft, tender RLQ without guarding or rebound, nondistended, + bowel sounds
EXT: no cyanosis, clubbing, or edema
NEUROLOGIC: grossly intact
Hematemesis --concern for upper GI bleed due to possible esophageal varices--confirmed with EGD per GI--apprec input--cont PPI and octreotide drips
acute blood loss anemia from bleeding esophageal varices--has hx of GERSON--transfuse pRBC as needed keeping HGB ~9
hx of Hepatitis C cirrhosis--apprec GI--cont rocephin for SBP prophylaxis--s/p treatment for Hep C---Hold Lasix, spironolactone due to hypotension
Hypotension secondary to blood loss--Hold furosemide 40 mg daily, lisinopril 2.5 mg daily, Toprol tartrate 25 mg twice daily, spironolactone 100 mg p.o. daily
Chronic thrombocytopenia secondary to cirrhosis--Plt 85 prior baselines mid 50s, would not transfuse platelets at this time--Follow CBC
Prostate cancer Dx July 2023 mets to pelvis November 2023--Hold Erleada
CAD/[place]/RBBB/Hx angioplasty with stenting 07/10/2015--Hold aspirin 81 mg daily, atorvastatin 40 mg every afternoon, metoprolol tartrate 25 mg twice daily
DVT prophylaxis--SCDs
code status--Full code
Total Critical Care Time 33 minutes. I was immediately available to the patient and staff. I personally examined, reviewed labs, diagnostic images/reports, interpretations, treatment plans, discussed patient care with other providers and family
or caregivers (if patient is unable to make decisions), entered orders as appropriate and documented the medical record.
Original Note:
Today's Communication/Plan
-
.
Assessment / Plan
Assessment / Plan
Assessment and Plan:
Impression:
The patient is a year old male who presented to ER on 05/31 due vomiting blood. He vomited blood for 4 times in totally. The patient also reported having black stool. Patient denies history of GI bleed.The patient is not on any blood thinners. The
patient has PMH of Chronic hepatitis C complicated by cirrhosis (ascites/varices- on beta-rosa and diuretics), CAD, HCV, splenomegaly, osteopenia, thrombocytopenia, prostate cancer with mets to bone on Erleada, history of portal vein
thrombosis. GI team performed EGD on 05/31/2024 showing large grade 4 varices in the entire esophagus with an adherent clot at the GEJ at the base of one of the varices. 5 bands were successfully placed with incomplete eradication of the varices.
There was no bleeding during the procedure. Hematin was found in the gastric fundus and the body of the stomach with old clots with no obvious gastric varices. He had a abdominal CT today due abdominal pain and it did not show any acute
abnormality.
Assessment
#Hematemesis
Due to esophageal varices s/p banding x 5 with incomplete eradication of varices (EGD performed 05/31/2024)
- IV Fluids
-PPI gtt + octreotide gtt
-Transition to intermittent PPI dosing per GI; continue octreotide gtt x 72 hrs before stopping
- Diet deferred to GI - now on clear liquids and ADAT
- Rocephin 1g once daily x 7 days
- Aspiration precautions
#Abdominal pain
-Abdominal CT: No acute abnormality in the abdomen or pelvis. Worsening osseous metastatic disease throughout the spine and pelvis.
#Pain control
Hydromorphone PRN
Hold for sedation
#Nausea
- Anti-emetics prn (trend QTc: 513ms today)
- Hold off on additional Zofran and use Compazine if needed for nausea/vomiting
#Pulmonary:
- Incentive spirometer
- Maintain SpO2 >90-94% with supplemental O2 as needed
#Acute Blood Loss Anemia
-baseline Hb 10.5-12g/dL
-1 unite RBC transfusion was given today
-Serial HGB follow up transfuse if needed to keep Hb>7; avoid over-transfusing as this can cause rupture of esophageal varices
- Maintain MAP>65
#Thrombocytopenia
(baseline plt count: 55-70)
Keep plt>50k
#Hyperglycemia
- resolved
#History of metastatic prostate cancer s/p prostatectomy with bony mets currently
On hormone therapy with Erleada
#DVT
-SCDs; hold off on chemical prophylaxis for now given due acute UGIB
Anticipated Discharge: 24 - 48 hours
Subjective/Interval History
-
Date of Service: June 01, 2024
The patient was seen in his bed and was complaining abdominal pain. He denied nausea or vomiting today.
Objective Data
-
Labs:
Laboratory Results
05/31/24 06/01/24 06/01/24
21:08 02:11 02:11
WBC 7.2 6.7
Hgb 8.1 L Cancelled 7.5 L
Hct 23.4 L Cancelled
Plt Count 65 L D
Sodium
Potassium
Chloride
Carbon Dioxide
BUN
Creatinine
Glucose
Calcium
Total Bilirubin
AST
ALT
Alkaline Phosphatase
06/01/24 06/01/24 06/01/24
02:11 10:00 18:00
WBC
Hgb Pending Pending
Hct 21.8 L Pending Pending
Plt Count 63 L
Sodium 142
Potassium 4.5
Chloride 108 H
Carbon Dioxide 25
BUN 45 H
Creatinine 0.8
Glucose 127 H
Calcium 7.6 L
Total Bilirubin 0.4
AST 28
ALT 20
Alkaline Phosphatase 27 L
Vital Signs:
Vital Signs
Temp Pulse Resp BP Pulse Ox
97.8 F 88 18 133/107 97
06/01/24 06:55 06/01/24 06:00 06/01/24 06:00 06/01/24 06:00 06/01/24 06:55
I&O
05/31/24 06/01/24 06/02/24
06:59 06:59 06:59
Intake Total 2121.5 / 2263.2 141.7 / 141.7
Output Total 600 / 1025 425 / 425
Balance 1521.5 / 1238.2 -283.3 / -283.3
Review of Systems
-
EENT: Reports No Symptoms Reported
Respiratory: Reports No Symptoms
Cardiac: Reports No Symptoms
Abdomen/GI: Reports Abdominal Pain (no rebound, no guarding )
Genitourinary: Reports No Symptoms
Musculoskeletal: Reports No Symptoms
Skin: Reports No Symptoms
Neuro: Reports No Symptoms
Physical Exam
-
General: Well Developed and Well Nourished
HEENT: Normocephalic and Atraumatic
Respiratory: Clear to Auscultation
Cardiac: Regular Rhythm and S1/S2
GI: Soft, Nondistended and Other (pain to palpation on the right lower quadrant )
Musculoskeletal: No Clubbing
Skin: Warm and Dry
Neuro: Awake, Alert, Oriented and AO x 3
[2024-06-01 07:37] LABS: Glycohemoglobin (HgbA1c) 5.2 % (4.0-5.6)
--- NOTE | 2024-06-01 08:05 | PTCARENOTE ---
Assumed care of pt at 0715 following shift report. Pt awake and resting quietly in bed. Sandostatin, Protonix and IVF infusing as ordered. On RA w/ POx 97%. No SOB. Physical assessment completed as documented. Pt requesting PO fluids. Plan of care
discussed w/ pt including current NPO order. Questions answered and emotional support provided. Pt reports RLQ abdominal 'aching' pain, rates 6/10. Ordered PRN Dilaudid given (see MAR). Call alaniz w/in pt reach and safe environment maintained.
--- NOTE | 2024-06-01 08:10 | W.PN.INTV ---
Today's Communication / Plan
Recommendations
Large bore IV x 2
Hold anticoagulants/antiplatelets for now until specified otherwise by GI
PPI + octreotide
Serial H&H and transfuse to keep Hb >7 g/dL
Continue with maintenance IVF but once starts to tolerate PO diet then can wean off IVF to avoid volume overload
If patient remains stable throughout the day with no signs of active GI bleed and is orthostatic negative then we will transfer out of ICU to IMU. Once transferred out of ICU then we will sign off. Please call if there are any additional questions
or concerns
Assessment
-
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
Yanni and CAD s/p NADJA (2014) who presents with nausea, bloody vomitus + tarry stools. Patient follows with GI as an outpatient. He developed end-stage liver disease with ascites after he had a prostatectomy. He has a history of grade 2 varices
in 2021. He follows with hepatology. He does take aspirin 81 mg daily otherwise denies taking any other blood thinners. He denies any chest pain or shortness of breath or lightheadedness. He had projectile hematemesis while in the ER. Patient
does not have significant alcohol intake although admits to drinking 1 glass of wine a few weeks ago. In the ER he was afebrile to 97.8 �F, pulse rate 109, breathing at 16 breaths minute, BP 98/67 and saturating 92% on room air. Labs showed Hb
9.6, platelets 85, BUN 47, and glucose 185. He was given ceftriaxone in the ER, IVF with 1 L NS 0.9%, Zofran and started on Protonix drip + octreotide drip. Patient was admitted to the hospitalist service with GI consulted who brought the patient
urgently for EGD. EGD performed on 05/31/2024 showing large grade 4 varices in the entire esophagus with an adherent clot at the GEJ at the base of one of the varices. 5 bands were successfully placed with incomplete eradication of the varices.
There was no bleeding during the procedure. Hematin was found in the gastric fundus and the body of the stomach with old clots with no obvious gastric varices. The duodenum appeared normal. 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
care and plate finisher services consulted for additional management/recommendations.
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
thrombosis
Impression:
#Upper gastrointestinal hemorrhage due to esophageal varices s/p banding x 5 with incomplete eradication of varices (EGD performed 05/31/2024)
#Acute blood loss anemia due to above (baseline Hb 10.5-12g/dL)
#Hyperglycemia - resolved
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
#History of PVT
#Thrombocytopenia (baseline plt count: 55-70)
#History of metastatic prostate cancer s/p prostatectomy with bony mets currently on hormone therapy with Erleada
#CAD s/p NADJA to mid-RCA (August 2015)
Plan:
- Large bore IV x2
- PPI gtt + octreotide gtt
- Transition to intermittent PPI dosing per GI; continue octreotide gtt x 72 hrs before stopping
- Serial H/H and transfuse if needed to keep Hb>7; avoid over-transfusing as this can cause rupture of esophageal varices
- Keep plt>50k
- Hold all anticoagulants/antiplatelets for now
- Maintain MAP>65
- Maintain SpO2 >90-94% with supplemental O2 as needed
- Diet deferred to GI - now on clear liquids and ADAT
- Rocephin 1g once daily x 7 days
- Aspiration precautions
- Anti-emetics prn (trend QTc: 513ms today)
- Hold off on additional zofran and use compazine if needed for nausea/vomiting
- Pain control
- Replete electrolytes with K>4, Mg>2
- Maintain euglycemia with goal BG 140-180
- A1C: 5.2
- prn nebulized bronchodilators - pt not currently bronchospastic
- Incentive spirometer encouraged 10x per hour for at least 4 hrs a day
- DVT ppx: SCDs; hold off on chemical prophylaxis for now given acute UGIB
If patient remains clinically stable without hematemesis or rectal bleeding/melena and is hemodynamically stable with orthostatic negative vital signs, then will transfer out of ICU to IMU. Continue to trend Hb as above, maintaining Hb level >7
g/dL. GI continuing to follow along with eventual outpatient follow-up as well. If patient transferred to IMU, we will sign off at that time. Thank you for allowing us to be involved in the care of this patient. Please call back with any
questions or concerns.
Total time spent today was 75 minutes for this encounter. Time includes reviewing laboratory test/imaging results, reviewing pertinent medical records, obtaining and reviewing medical history, performing an appropriate exam, ordering medications,
tests and procedures. Time also includes documentation of this encounter, coordinating patient care and communicating with other healthcare professionals. Total time does not include separately billed tests performed on this date of service.
Subjective Dataa
Subjective Data
Date of Service:
Date of Service: June 01, 2024
Chief Complaint: Senior Marketing Data Analyst Follow Up
Subjective:
Pt seen and evaluated this AM. Still with RLQ abd pain. No hematemesis overnight. HR 81, BP 119/50, saturating 97% on room air. Patient's , Nitza, at bedside. He denies shortness of breath, chest pain, WILSON, nausea, fevers or chills.
Review of Systems
General: Other (Negative unless mentioned above)
Objective Data
Data Reviewed
Vital Signs / I&O / Oxygen:
Vital Signs
Temp Pulse Resp BP Pulse Ox
97.8 F 88 18 133/107 97
06/01/24 06:55 06/01/24 06:00 06/01/24 06:00 06/01/24 06:00 06/01/24 08:50
Intake and Output
05/31/24 06/01/24 06/02/24
06:59 06:59 06:59
Intake Total 2121.5 / 2263.2 283.4 / 283.4
Output Total 600 / 1025 425 / 425
Balance 1521.5 / 1238.2 -141.6 / -141.6
SaO2 97
Physical Exam
General: Respiratory Distress (negative), Comfortable, Chills (negative) and Sweats (negative)
HEENT: Normocephalic and Anicteric
Cardiovascular: S1-S2 and Peripheral Edema (negative)
Respiratory: Wheeze (negative), Crackles (negative), Rhonchi (negative), Non-Labored Respirations and Stridor (negative)
GI: Soft, Non Distended, Tender (RLQ with deep palpation) and Normal Bowel Sounds
Neurology: AO x 3 and Tremors (negative)
Skin: Warm, Dry and Jaundice (negative)
Labs/Micro/Reports
Lab Data
06/01/24 02:11
Laboratory Results
05/31/24
11:08
PT 17.8 H
INR 1.48
APTT 24.1
--- NOTE | 2024-06-01 08:46 | CM ---
Patient seen at bedside with Nitza. Patient lives with in 2 story home with son. Patient indicated that patient is independent and playing golf, working. Patient has no DME at home, patient has had [facility] in the past. Patient very
independent per . Patient PCP is Dr. Braden Avila and he uses [facility] in [place]. Patient plan for discharge is home with family and no needs at this time. Spouse would transport patient home. Patient for further medical work up. CM will continue
to follow for discharge planning needs.
D/C plan: home with no needs vs home with VN; pending medical treatment plan
--- NOTE | 2024-06-01 09:35 | W.PN.GI.CBS2 ---
Addendum entered and electronically signed by Delon Granda MD 06/01/24 11:32:
I saw and examined the patient.
The CARDIOLOGY FELLOW or PA's note was reviewed and I agree with the note.
Comment:
Pt with cirrhosis, prostate ca s/p variceal bleed with 5 bands placed. No vomiting. Feels better
abd: soft, nontender
alert, oriented
hgb: 6.9
impression
cirrhosis
variceal bleed
plan:
1. keep on octreotide ggt
2. keep on PPI ggt one more day as stigmata at GEJ
3. ok to start clears
4. keep hgb around 8 and therefore can give 1 unit
5. continue rocephin
6. will need outpatient eradication of varices
d/w polysomnography technician, , and patient
Original Note:
Today's Communication / Plan
-
s/p EGD as noted with EV banding of large varices
no vomiting or stools overnight feeling better
some slow drop in hbg 9.6--8.5--8.1--7.5 with repeat pending now cont to trend
remains NPO will allow clear diet no reds
transition PPI to IV BID
cont Octreotide gtt
cont IV Rocephin for 7 day course
pt was on Metoprolol along with Aldactone and Lasix prior to admission -- currently on hold
OOB with assist as tolerated
updated at bedside
will review need for repeat EGD with Dr. Granda
Pt will need follow up with Dr. Agrawal-- may already be scheduled
updated nursing staff
Assessment / Plan
-
68-year-old male with past medical history of decompensated cirrhosis (ascites/varices), on beta-rosa and diuretics due to hepatitis C which was cured in the past, no history of encephalopathy, history of portal vein thrombosis, thrombocytopenia,
history of metastatic prostate cancer status post prostatectomy with mets to the bone currently on hormone therapy (Erleada) with undetectable PSA who presents to the ER with acute onset of hematemesis and melena asked to evaluate for the same. Last
EGD was in 2021 where he had grade 2 esophageal varices. Portal hypertensive gastropathy. Currently presents with 3 large episodes of hematemesis concerning for esophageal variceal bleed and drop in hbg.
05/31/24 EGD - Large (> 5 mm) esophageal varices, one with stigmata
of recent bleeding. Incompletely eradicated. Banded.
- Hematin (altered blood/zggaxo-yqmdhf-aeid material)
in the gastric fundus.
- Normal duodenum.
- No specimens collected.
Impression:
Upper GI bleed-> s/p EGD with large EV and stigmata of recent bleeding with eradication and banding 05/31
Cirrhosis, decompensated with history of varices/ascites-> MELD 10
Thrombocytopenia-> platelets 85
History of metastatic prostate cancer, on Erleada
Plan:
s/p EGD as noted with EV banding of large varices
no vomiting or stools overnight feeling better
some slow drop in hbg 9.6--8.5--8.1--7.5 with repeat pending now cont to trend
remains NPO will allow clear diet no reds
transition PPI to IV BID
cont Octreotide gtt
cont IV Rocephin for 7 day course
pt was on Metoprolol along with Aldactone and Lasix prior to admission -- currently on hold
OOB with assist as tolerated
updated at bedside
will review need for repeat EGD with Dr. Granda
Pt will need follow up with Dr. Agrawal-- may already be scheduled
updated nursing staff
Subjective
Subjective
Date of Service: June 01, 2024
NPO no stools
Objective
Data Reviewed
Laboratory Data:
Laboratory Results
06/01/24 02:11
Laboratory Results
PT 17.8 Sec (11.4-14.6) H 05/31/24 11:08
INR 1.48 05/31/24 11:08
APTT 24.1 Sec (23.4-35.0) 05/31/24 11:08
Phosphorus 4.1 mg/dl (2.5-4.5) 06/01/24 02:11
Magnesium 1.8 mg/dl (1.6-2.3) 06/01/24 02:11
Total Bilirubin 0.4 mg/dl (0.2-1.3) 06/01/24 02:11
AST 28 U/L (17-59) 06/01/24 02:11
ALT 20 U/L (0-50) 06/01/24 02:11
Alkaline Phosphatase 27 U/L (38-126) L 06/01/24 02:11
Vital Signs and I&O:
Vital Signs
Temp Pulse Resp BP Pulse Ox
97.8 F 88 18 133/107 97
06/01/24 06:55 06/01/24 06:00 06/01/24 06:00 06/01/24 06:00 06/01/24 08:50
I&O
05/31/24 06/01/24 06/02/24
06:59 06:59 06:59
Intake Total 2121.5 / 2263.2 283.4 / 283.4
Output Total 600 / 1025 425 / 425
Balance 1521.5 / 1238.2 -141.6 / -141.6
Physical Exam
Physical Exam
HEENT: Anicteric and Moist mucous membranes
Cardiology: Normal Sinus Rhythm
Pulmonary: Clear
GI: Soft, Distended (minimal ) and Non Tender
Extremities: No Edema
Neuro: Non Focal
--- NOTE | 2024-06-01 10:29 | PTCARENOTE ---
Pt's diet advanced to CL. Education on clear liquid diet provided to pt and his . Protonix, Sandostatin and IVF continue unchanged. No new complaints or changes noted from previous assessment findings.
[2024-06-01 10:49] LABS: Hematocrit 20.3 % (39.0-52.0); Hemoglobin 6.9 g/dL (13.0-18.0); Mean Corpuscular Hgb 29.4 pg (27.0-31.0); Mean Corpuscular Volume 86.4 fL (80.0-94.0); Mean Platelet Volume 13.6 fL (7.4-10.4); Platelet Count 56 10^3/uL (130-400); Red Blood Cell Count 2.35 10^6/uL (4.70-6.10); Red Cell Dist. Width 15.1 % (11.5-14.5); White Blood Cell Count 4.7 10^3/uL (4.8-10.8)
[2024-06-01] MEDS: SANDOSTATIN 500.6 MCG IV (12:04)
[2024-06-01] MEDS: STERILE WATER FOR INJECTION 10 ML IV (12:47)
[2024-06-01] MEDS: ROCEPHIN 1000 MG IV (12:47)
--- NOTE | 2024-06-01 15:30 | PTCARENOTE ---
Pt to CT scan and then OOB to chair following transfusion of PRBC. Tolerating increased activity w/o complication. Denies dizziness. Multiple family members in to visit. Passing flatus. IVF d/c'ed per order. Pt taking PO. No additional changes from
previous assessment findings.
[2024-06-01] MEDS: ZESTRIL 2.5 MG PO (15:44)
[2024-06-01 15:52] LABS: Hematocrit 22.7 % (39.0-52.0); Hemoglobin 7.8 g/dL (13.0-18.0); Reticulocyte Count 3.2 % (0.4-2.8)
[2024-06-01 15:58] LABS: Hematocrit 22.7 % (39.0-52.0); Hemoglobin 7.6 g/dL (13.0-18.0)
[2024-06-01 16:27] LABS: Iron 124 ug/dl (49-181)
[2024-06-01 16:36] LABS: Percent Saturation 78 % (20-50); Total Iron Binding Capacity 157 ug/dl (261-462)
[2024-06-01 16:52] LABS: Ferritin 36.8 ng/ml (17.9-464.0)
--- NOTE | 2024-06-01 17:22 | PTCARENOTE ---
Dr Granda notified that pt has had a total of three loose dark/maroon stools (last one becoming more formed). VSS. No additional complaints from pt. No new orders received.
--- NOTE | 2024-06-01 20:00 | PTCARENOTE ---
rec`d pt at 1900. AAOx3. SR w/ bundle. bilateral lower extrem edema. scds. pain covered w/ prn. diminished lung sounds. uses urinal. gtts continued (see MAR). left AC, Rt AC, RT midline. call alaniz in reach, safe environment.
[2024-06-01] MEDS: OSCAL 500 + D 500 MG PO (21:08)
[2024-06-01] MEDS: VITAMIN C 500 MG PO (21:08)
[2024-06-01] MEDS: LOPRESSOR 25 MG PO (21:08)
[2024-06-01 21:35] LABS: Hematocrit 21.6 % (39.0-52.0); Hemoglobin 7.4 g/dL (13.0-18.0); Mean Corp Hgb Conc. 35.1 g/dL (33.0-37.0); Mean Corpuscular Hgb 30.1 pg (27.0-31.0); Mean Corpuscular Volume 85.8 fL (80.0-94.0); Mean Platelet Volume 13.2 fL (7.4-10.4); Platelet Count 56 10^3/uL (130-400); Red Blood Cell Count 2.46 10^6/uL (4.70-6.10); Red Cell Dist. Width 14.6 % (11.5-14.5); White Blood Cell Count 4.5 10^3/uL (4.8-10.8)
[2024-06-02] VITALS (15 sets, daily range): BP systolic 105–149; BP diastolic 48–66; PULSE 78; O2SAT 100; BMI 32.6
--- NOTE | 2024-06-02 | PTCARENOTE ---
pt reassessed. no changes in pt assessment, call alaniz in reach.
[2024-06-02] MEDS: SANDOSTATIN 500.6 MCG IV ×2 (00:10→12:38)
[2024-06-02] MEDS: PROTONIX 100 IV ×2 (00:10→10:25)
[2024-06-02 04:55] LABS: % Basophils 0.3 % (0-2); % Eosinophils 3.8 % (0-6); % Immature Granulocytes 0.3 % (0-0.5); % Lymphocytes 19.6 % (20.5-51.1); % Monocytes 10.8 % (1.7-9.3); % Neutrophils 65.2 % (42.2-75.2); Absolute Eosinophils 0.1 10^3/uL (0-0.7); Absolute Lymphocytes 0.6 10^3/uL (1.2-3.4); Absolute Monocytes 0.3 10^3/uL (0.1-0.6); Absolute Neutrophils 2.1 10^3/uL (1.4-6.5); Hematocrit 21.4 % (39.0-52.0); Hemoglobin 7.3 g/dL (13.0-18.0); Mean Corp Hgb Conc. 34.1 g/dL (33.0-37.0); Mean Corpuscular Hgb 30.7 pg (27.0-31.0); Mean Corpuscular Volume 89.9 fL (80.0-94.0); Mean Platelet Volume 12.8 fL (7.4-10.4); Nucleated Red Blood Cells % 0 % (-); Platelet Count 47 10^3/uL (130-400); Red Blood Cell Count 2.38 10^6/uL (4.70-6.10); Red Cell Dist. Width 14.6 % (11.5-14.5); White Blood Cell Count 3.2 10^3/uL (4.8-10.8)
[2024-06-02 05:02] LABS: INR 1.34; PT 16.6 Sec (11.4-14.6)
[2024-06-02 05:12] LABS: ALT (SGPT) 19 U/L (0-50); AST (SGOT) 27 U/L (17-59); Alkaline Phosphatase 26 U/L (38-126); Blood Urea Nitrogen 22 mg/dl (9-20); Calcium 7.4 mg/dl (8.4-10.2); Carbon Dioxide 23 mmol/L (22-30); Chloride 108 mmol/L (98-107); Estimated Creatinine Clearance > 125 ml/min; Glucose 109 mg/dl (70-99); Potassium 3.8 mmol/L (3.5-5.1); Sodium 141 mmol/L (135-145); Total Bilirubin 0.5 mg/dl (0.2-1.3); Total Protein 5.3 g/dl (6.3-8.2); eGFR > 60.00
--- NOTE | 2024-06-02 05:21 | PTCARENOTE ---
spoke and updated to pt`s viA phone.
--- NOTE | 2024-06-02 06:04 | W.PN.HOSP.TC ---
Addendum entered and electronically signed by Cris Perrin MD 06/02/24 19:44:
I saw and evaluated the patient independently. I reviewed the resident�s note and agree with findings and plan as documented by Dr. Villalta.
GENERAL: well developed, well nourished, male in no apparent distress
HEENT:NC/AT--pale appearing
HEART: regular rate and rhythm, +S1, +S2
LUNGS : clear to auscultation bilaterally
ABDOM: soft, minimally tender RLQ without guarding or rebound, nondistended, + bowel sounds
EXT: no cyanosis, clubbing, or edema
NEUROLOGIC: grossly intact
Hematemesis --concern for upper GI bleed due to possible esophageal varices--confirmed with EGD per GI, banded--apprec input--cont PPI and octreotide
acute blood loss anemia from bleeding esophageal varices--has hx of iron deficiency anemia--transfuse pRBC as needed keeping HGB ~9
hx of Hepatitis C cirrhosis--apprec GI--cont rocephin for SBP prophylaxis--s/p treatment for Hep C---resume Lasix, spironolactone
Hypotension secondary to blood loss--resolved--resume furosemide 40 mg daily, lisinopril 2.5 mg daily, Toprol 25 mg twice daily, spironolactone 100 mg p.o. daily
Chronic thrombocytopenia secondary to cirrhosis--Plt 64K-- would not transfuse platelets at this time--Follow CBC
Prostate cancer Dx July 2023 mets to pelvis November 2023--CT scan abdomen, done for RLQ pain not much different but shows more osseus mets--consult heme--Hold Erleada, resume at dc per heme
CAD/AZ/RBBB/Hx angioplasty with stenting 07/10/2015--resume aspirin 81 mg daily, atorvastatin 40 mg every afternoon, metoprolol tartrate 25 mg twice daily-as able
DVT prophylaxis--SCDs
code status--Full code
transfer out of ICU
Original Note:
Today's Communication/Plan
-
.
Assessment / Plan
Assessment / Plan
Assessment and Plan:
Impression:
The patient is a 68 year old male who presented to ER on 05/31 due vomiting blood. He vomited blood for 4 times in totally. The patient also reported having black stool at the present to ER. Patient denies history of GI bleed.The patient is not on
any blood thinners. The patient has PMH of Chronic hepatitis C complicated by cirrhosis (ascites/varices- on beta-rosa and diuretics), CAD, HCV, splenomegaly, osteopenia, thrombocytopenia, prostate cancer with mets to bone on Erleada, history
of portal vein thrombosis. GI team performed EGD on 05/31/2024 showing large grade 4 varices in the entire esophagus with an adherent clot at the GEJ at the base of one of the varices. 5 bands were successfully placed with incomplete eradication
of the varices. There was no bleeding during the procedure. Hematin was found in the gastric fundus and the body of the stomach with old clots with no obvious gastric varices. He had a abdominal CT today due abdominal pain and it did not show
any acute abdominal abnormality, but worsening osseous metastatic disease throughout the spine and pelvis was found. Oncology was consulted for assessment.
Assessment
#Hematemesis
Due to esophageal varices s/p banding x 5 with incomplete eradication of varices (EGD performed 05/31/2024)
- IV Fluids
-Continue octreotide gtt by GI rec
-Transition to IV PPI bid
- Advance Diet by GI
- Rocephin 1g once daily x 7 days
- Aspiration precautions
#Abdominal pain
-Abdominal CT: No acute abnormality in the abdomen or pelvis. Worsening osseous metastatic disease throughout the spine and pelvis.
#Pain control
Hydromorphone PRN
Hold for sedation
#Nausea
- Anti-emetics PRN (trend QTc: 513ms today)
- Hold off on additional Zofran and use Compazine if needed for nausea/vomiting
#Pulmonary:
- Incentive spirometer
- Maintain SpO2 >90-94% with supplemental O2 as needed
#Acute Blood Loss Anemia
-baseline Hb 10.5-12g/dL
-1 unite RBC transfusion was given yesterday
-Hgb level is 8.6 today
-Serial HGB follow up transfuse if needed to keep Hb>7; avoid over-transfusing as this can cause rupture of esophageal varices
- Maintain MAP>65
#Chronic Thrombocytopenia most likely secondary to cirrhosis
(baseline plt count: 55-70)
Plt today: 47 at 04:35 am and 64 at 13.08 pm
#Hyperglycemia
-Glucose 109 today
- resolved
#History of metastatic prostate cancer s/p prostatectomy with bony mets currently
-On hormone therapy with Erleada before hospital admission
-Oncology recommended to restart Erleada on discharge
-Outpatient PSMA PET was recommended for appropriate restaging
#DVT
-SCDs; hold off on chemical prophylaxis for now given due acute UGIB
Anticipated Discharge: 24 - 48 hours
Subjective/Interval History
-
Date of Service: June 02, 2024
The patient reports feeling better today. No vomiting, no dark colored stool, tolerating clear liquid diet
Objective Data
-
Labs:
Laboratory Results
06/01/24 06/02/24
21:23 04:35
WBC 4.5 L 3.2 L
Hgb 7.4 L 7.3 L
Hct 21.6 L 21.4 L
Plt Count 56 L 47 L
PT 16.6 H
INR 1.34
Sodium 141
Potassium 3.8
Chloride 108 H
Carbon Dioxide 23
BUN 22 H
Creatinine 0.7
Glucose 109 H
Calcium 7.4 L
Total Bilirubin 0.5
AST 27
ALT 19
Alkaline Phosphatase 26 L
Vital Signs:
Vital Signs
Temp Pulse Resp BP Pulse Ox
98.2 F 82 22 121/66 96
06/01/24 23:13 06/02/24 05:00 06/02/24 05:00 06/02/24 04:00 06/01/24 20:00
I&O
05/31/24 06/01/24 06/02/24
06:59 06:59 06:59
Intake Total 2121.5 / 2263.2 3269.1 / 3269.1
Output Total 600 / 1025 1275 / 1275
Balance 1521.5 / 1238.2 / 1993.
Review of Systems
-
EENT: Reports No Symptoms Reported
Respiratory: Reports No Symptoms
Cardiac: Reports No Symptoms
Abdomen/GI: Reports No Symptoms
Genitourinary: Reports No Symptoms
Musculoskeletal: Reports No Symptoms
Skin: Reports No Symptoms
Neuro: Reports No Symptoms
Physical Exam
-
General: Well Developed and Well Nourished
HEENT: Normocephalic and Atraumatic
Respiratory: Clear to Auscultation
Cardiac: Regular Rhythm and S1/S2
GI: Soft and Nontender
Musculoskeletal: No Clubbing
Neuro: Awake, Alert, Oriented and AO x 3
[2024-06-02] MEDS: ZESTRIL 2.5 MG PO (07:46)
[2024-06-02] MEDS: VITAMIN B-12 100 MCG PO (07:46)
[2024-06-02] MEDS: FOLVITE 0.8 MG PO (07:47)
[2024-06-02] MEDS: VITAMIN C 500 MG PO ×2 (07:47→20:45)
[2024-06-02] MEDS: OSCAL 500 + D 500 MG PO ×2 (07:47→20:44)
[2024-06-02] MEDS: LOPRESSOR 25 MG PO ×2 (07:47→20:42)
--- NOTE | 2024-06-02 08:07 | W.PN.INTV ---
Today's Communication / Plan
Recommendations
Large bore IV x 2
Hold anticoagulants/antiplatelets for now until specified otherwise by GI
PPI; octreotide gtt now off
Serial H&H and transfuse to keep Hb >7 g/dL
Stop IVF
Oncology consulted
Patient is stable for downgrade out of ICU to telemetry. Buyer Planner/Pulmonary service will now sign off. Please reconsult if there are any additional questions/concerns, or if patient's respiratory status deteriorates.
Assessment
-
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
Harvoni and CAD s/p NADJA (2014) who presents with nausea, bloody vomitus + tarry stools. Patient follows with GI as an outpatient. He developed end-stage liver disease with ascites after he had a prostatectomy. He has a history of grade 2 varices
in 2021. He follows with hepatology. He does take aspirin 81 mg daily otherwise denies taking any other blood thinners. He denies any chest pain or shortness of breath or lightheadedness. He had projectile hematemesis while in the ER. Patient
does not have significant alcohol intake although admits to drinking 1 glass of wine a few weeks ago. In the ER he was afebrile to 97.8 �F, pulse rate 109, breathing at 16 breaths minute, BP 98/67 and saturating 92% on room air. Labs showed Hb
9.6, platelets 85, BUN 47, and glucose 185. He was given ceftriaxone in the ER, IVF with 1 L NS 0.9%, Zofran and started on Protonix drip + octreotide drip. Patient was admitted to the hospitalist service with GI consulted who brought the patient
urgently for EGD. EGD performed on 05/31/2024 showing large grade 4 varices in the entire esophagus with an adherent clot at the GEJ at the base of one of the varices. 5 bands were successfully placed with incomplete eradication of the varices.
There was no bleeding during the procedure. Hematin was found in the gastric fundus and the body of the stomach with old clots with no obvious gastric varices. The duodenum appeared normal. 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
thrombosis
Impression:
#Upper gastrointestinal hemorrhage due to esophageal varices s/p banding x 5 with incomplete eradication of varices (EGD performed 05/31/2024)
#Acute blood loss anemia due to above (baseline Hb 10.5-12g/dL)
#Hyperglycemia - resolved
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
#History of PVT
#Thrombocytopenia (baseline plt count: 55-70)
#History of metastatic prostate cancer s/p prostatectomy with bony mets currently on hormone therapy with Erleada --> CT A/P done yesterday shows worsening osseous metastatic disease throughout the spine + pelvis
#CAD s/p NADJA to mid-RCA (August 2015)
Plan:
- Large bore IV x2
- PPI gtt + octreotide gtt
- Transition to intermittent PPI dosing today per GI; continue octreotide gtt x 72 hrs before stopping --> now stopped
- Serial H/H and transfuse if needed to keep Hb>7; avoid over-transfusing as this can cause rupture of esophageal varices
- Keep plt>50k
- Hold all anticoagulants/antiplatelets for now
- Maintain MAP>65
- Maintain SpO2 >90-94% with supplemental O2 as needed
- Diet deferred to GI - now on regular diet
- Rocephin 1g once daily x 7 days
- Aspiration precautions
- Anti-emetics prn (trend QTc: 513ms from 06/01/2024 EKG)
- Hold off on additional zofran and use compazine if needed for nausea/vomiting
- Pain control
-Consult oncology regarding recent CT A/P showing worsening osseous metastatic disease throughout the spine and pelvis; defer starting Erleada to Oncology as well ( brought it in)
- Replete electrolytes with K>4, Mg>2
- Maintain euglycemia with goal BG 140-180
- A1C: 5.2
- prn nebulized bronchodilators - pt not currently bronchospastic
- Incentive spirometer encouraged 10x per hour for at least 4 hrs a day
- DVT ppx: SCDs; hold off on chemical prophylaxis for now given acute UGIB
Patient is stable for downgrade out of ICU to telemetry. Buyer Planner/Pulmonary service will now sign off. Thank you for allowing us to be involved in the care of this patient. Please reconsult if there are any additional questions/concerns, or if
patient's respiratory status deteriorates.
Data:
CT Abd/Pelvis with IV contrast 06/01/2024:
No acute abnormality in the abdomen or pelvis.
Cirrhosis with portal hypertension characterized by small volume ascites (not enough fluid for paracentesis), portosystemic varices, and splenomegaly.
Partial thrombosis involving the main portal vein with extension into the splenic vein and superior mesenteric vein, unchanged from 2021.
Worsening osseous metastatic disease throughout the spine and pelvis.
Total time spent today was 50 minutes for this encounter. Time includes reviewing laboratory test/imaging results, reviewing pertinent medical records, obtaining and reviewing medical history, performing an appropriate exam, ordering medications,
tests and procedures. Time also includes documentation of this encounter, coordinating patient care and communicating with other healthcare professionals. Total time does not include separately billed tests performed on this date of service.
Subjective Dataa
Subjective Data
Date of Service:
Date of Service: June 02, 2024
Chief Complaint: Buyer Planner Follow Up
Subjective:
Patient seen and evaluated this morning. No bleeding reported overnight. He continues to have right-sided flank/back/pelvic pain. Currently on room air saturating 97%, BP 112/60 and heart rate 65. He is out of bed to the chair in no acute
distress. Fluids have been stopped. He denies SOB, abdominal pain, chest pain, WILSON, fevers or chills.
Review of Systems
General: Other (Negative unless mentioned above)
Objective Data
Data Reviewed
Vital Signs / I&O / Oxygen:
Vital Signs
Temp Pulse Resp BP Pulse Ox
98.1 F 64 20 112/60 96
06/02/24 08:23 06/02/24 09:00 06/02/24 09:00 06/02/24 07:47 06/01/24 20:00
Intake and Output
06/01/24 06/02/24 06/03/24
06:59 06:59 06:59
Intake Total 2121.5 / 2263.2 3320.8 / 3372.5 155.1 / 155.1
Output Total 600 / 1025 1275 / 1275
Balance 1521.5 / 1238.2 2045.8 / 2097.5 155.1 / 155.1
SaO2 96
Physical Exam
General: Respiratory Distress (negative), Comfortable, Chills (negative) and Sweats (negative)
HEENT: Normocephalic and Anicteric
Cardiovascular: S1-S2 and Peripheral Edema (negative)
Respiratory: Clear, Wheeze (negative), Crackles (negative), Rhonchi (negative), Non-Labored Respirations and Stridor (negative)
GI: Soft, Non Distended, Non Tender and Normal Bowel Sounds
Neurology: AO x 3 and Tremors (negative)
Skin: Warm, Dry and Jaundice (negative)
Labs/Micro/Reports
Lab Data
06/02/24 04:35
06/02/24 04:35
Laboratory Results
06/02/24
04:35
PT 16.6 H
INR 1.34
[2024-06-02] MEDS: DILAUDID 0.5 MG IV ×3 (08:43→19:35)
--- NOTE | 2024-06-02 09:29 | PTCARENOTE ---
pt is alert and oriented, NSR on monitor , Bp 112/60 hemoglobin 7.3 , no complaints of dizziness , denies vomiting , no BMs , abdomen is distended and firm , hyperactive bowel sounds , pt co pain on Right side of abdomen , pt given 0.5 mg of
Dilaudid for pain
--- NOTE | 2024-06-02 10:26 | CON.ONC ---
Impression
Impression
Prostate carcinoma stage IV on Eligard and Erleada
Evolving bony metastases
Plan
Plan
Small bony lesions are often difficult to gauge in significance, possibly become more sclerotic with treatment and thus visible on CT when previously not seen
Group grade 4 ([place] 8) would typically continue to produce PSA undetected 2 weeks ago
Outpatient PSMA PET would be more appropriate restaging
Continue current therapy
Restart Erleada on discharge
Transfusion support for hemoglobin <7.0
Advance diet
Will monitor CBC and follow-up in the office
Patient History
History of Present Illness
Patient is a pleasant 68-year-old gentleman with a known history of prostate carcinoma on Erleada and Eligard with undetectable PSA as recently as 05/18/2024 with a presentation of metastatic disease on 10/31 by PSMA PET scan and PSA of 117. He also
has a past medical history of decompensated cirrhosis (ascites/varices), on beta-rosa and diuretics due to hepatitis C which was cured in the past, no history of encephalopathy, history of portal vein thrombosis, thrombocytopenia and presented
to the ER with acute onset of hematemesis and melena. Last EGD was in 2021 where he had grade 2 esophageal varices. Portal hypertensive gastropathy. Currently presents with 3 large episodes of hematemesis concerning for esophageal variceal bleed
and drop in hbg.
Past-Medical/Surgical History
Past medical history
Chronic hepatitis C complicated by cirrhosis + ascites + EV, CAD s/p PTCA with NADJA (2014), HCV s/p Harvoni, splenomegaly, osteopenia, thrombocytopenia, prostate cancer with mets to bone on Erleada, history of portal vein thrombosis
Past surgical history
umbilical hernia repair, coronary stent
Social History
Tobacco: Non-smoker
Alcohol: None
Drug: None
Personal:
Living: With Family
Family History
Family History: Cancer (Mother + father: Colon cancer; father: Leukemia + prostate cancer)
Patient Medication
�Medication �Instructions �Recorded �Confirmed �Last Taken �Type
aspirin 81 mg chewable tablet 81 mg PO DAILY ##0 08/11/15 05/31/24 05/30/24 08:00 Rx
atorvastatin 40 mg tablet 40 mg PO QPM ##30 08/11/15 05/31/24 05/29/24 Rx
lisinopril 2.5 mg tablet 2.5 mg PO DAILY ##30 08/11/15 05/31/24 05/30/24 08:00 Rx
metoprolol tartrate 25 mg tablet 25 mg PO BID ##60 08/11/15 05/31/24 05/30/24 08:00 Rx
ascorbic acid (vitamin C) 500 mg 500 mg PO BID Supplement 07/24/23 05/31/24 05/30/24 08:00 History
tablet (Vitamin C)
folic acid 800 mcg tablet 0.8 mg PO DAILY Supplement 07/24/23 05/31/24 05/30/24 08:00 History
pantoprazole 40 mg tablet,delayed 40 mg PO DAILY Gastrointestinal 07/24/23 05/31/24 05/30/24 08:00 History
release Issue
cyanocobalamin (vitamin B-12) 100 100 mcg PO DAILY Supplement 10/06/23 05/31/24 05/30/24 08:00 History
mcg tablet (Vitamin B-12)
apalutamide 60 mg tablet (Erleada) 120 mg PO BID Cancer 12/25/23 05/31/24 05/30/24 08:00 History
calcium 600 mg (as 1 tab PO BID Supplement 12/25/23 05/31/24 05/30/24 08:00 History
carbonate)-vitamin D3 5 mcg (200
unit) tablet
furosemide 40 mg tablet 40 mg PO DAILY Fluid 12/25/23 05/31/24 05/30/24 08:00 History
Retention/Swelling
spironolactone 100 mg tablet 100 mg PO DAILY Fluid 05/31/24 05/31/24 05/30/24 08:00 History
Retention/Swelling
Active Medications
Generic Name Dose Route Start Last Admin
Trade Name Freq PRN Reason Stop Dose Admin
Ascorbic Acid 500 mg 06/01/24 20:00 06/02/24 07:47
Ascorbic Acid 500 Mg Tablet PO 06/29/24 19:59 500 mg
BID KAUSHIK Administration
Calcium/Vitamin D 500 mg 06/01/24 20:00 06/02/24 07:47
Calcium Carbonate 500 Mg/Vitamin D 5 Mcg (200 Units) Tablet PO 06/29/24 19:59 500 mg
BID KAUSHIK Administration
Ceftriaxone Sodium 1,000 mg 06/01/24 12:00 06/01/24 12:47
Ceftriaxone 1000 Mg / 10 Ml Vial IV 06/06/24 12:01 1,000 mg
Q24H KAUSHIK Administration
Cyanocobalamin 100 mcg 06/02/24 08:00 06/02/24 07:46
Cyanocobalamin (Vitamin B-12) 100 Mcg Tablet PO 06/30/24 07:59 100 mcg
DAILY KAUSHIK Administration
Folic Acid 0.8 mg 06/02/24 08:00 06/02/24 07:47
Folic Acid 0.4 Mg Tablet PO 06/30/24 07:59 0.8 mg
DAILY KAUSHIK Administration
Hydromorphone HCl 0.5 mg 05/31/24 17:59 06/02/24 08:43
Hydromorphone 0.5 Mg/0.5 Ml Syringe IV 06/14/24 17:58 0.5 mg
Q4HPRN PRN Administration
Moderate-severe pain
Octreotide Acetate 600 mcg/ 500.6 mls @ 41.717 mls/hr 06/01/24 00:00 06/02/24 00:10
Sodium Chloride IV 500.6 mls
Q12H KAUSHIK Administration
50 MCG/HR
Pantoprazole Sodium 80 mg in 100 mls @ 10 mls/hr 06/01/24 14:00 06/02/24 10:25
Protonix IV 100 mls
Q10H KAUSHIK Administration
8 MG/HR
Lisinopril 2.5 mg 06/01/24 10:00 06/02/24 07:46
Lisinopril 2.5 Mg Tablet PO 06/29/24 09:59 2.5 mg
DAILY KAUSHIK Administration
Metoprolol Tartrate 25 mg 06/01/24 20:00 06/02/24 07:47
Metoprolol 25 Mg Regular Release Tablet PO 06/29/24 19:59 25 mg
BID KAUSHIK Administration
Sodium Chloride 0 flush 05/31/24 15:00
Sodium Chloride 0.9% (Flush) Syringe IV 06/28/24 14:59
PER PROTOCOL KAUSHIK
Sterile Water 10 ml 06/01/24 12:00 06/01/24 12:47
Sterile Water For Injection 10 Ml Vial IV 06/29/24 11:59 10 ml
Q24H KAUSHIK Administration
Review of Systems
-
No additional complaints other than those reviewed in the HPI
Physical Exam
-
Physical Exam
-
HEENT: Normocephalic and Anicteric
Cardiovascular: S1/S2 and Peripheral Edema (negative)
Respiratory: Wheeze (negative), Rales (negative), Rhonchi (negative) and Non-Labored Respirations
GI: Soft, Non Distended, Tender (RLQ) and Normal Bowel Sounds
Neurology: Awake, Alert and Tremors (negative)
Skin: Warm and Dry
General: Respiratory Distress (negative), Pain (RLQ abdomen), Chills (negative) and Sweats (negative)
Labs
Lab Results
WBC 3.2 10^3/uL (4.8-10.8) L 06/02/24 04:35
RBC 2.38 10^6/uL (4.70-6.10) L 06/02/24 04:35
Hgb 7.3 g/dL (13.0-18.0) L 06/02/24 04:35
Hct 21.4 % (39.0-52.0) L 06/02/24 04:35
MCV 89.9 fL (80.0-94.0) 06/02/24 04:35
MCH 30.7 pg (27.0-31.0) 06/02/24 04:35
MCHC 34.1 g/dL (33.0-37.0) 06/02/24 04:35
RDW 14.6 % (11.5-14.5) H 06/02/24 04:35
Plt Count 47 10^3/uL (130-400) L 06/02/24 04:35
MPV 12.8 fL (7.4-10.4) H 06/02/24 04:35
Abs Immat Gran (auto) 0.0 10^3/uL (0-0.05) 06/02/24 04:35
Absolute Neuts (auto) 2.1 10^3/uL (1.4-6.5) 06/02/24 04:35
Absolute Lymphs (auto) 0.6 10^3/uL (1.2-3.4) L 06/02/24 04:35
Absolute Monos (auto) 0.3 10^3/uL (0.1-0.6) 06/02/24 04:35
Absolute Eos (auto) 0.1 10^3/uL (0-0.7) 06/02/24 04:35
Absolute Basos (auto) 0.0 10^3/uL (0-0.2) 06/02/24 04:35
Immature Gran % 0.3 % (0-0.5) 06/02/24 04:35
Neutrophils % 65.2 % (42.2-75.2) 06/02/24 04:35
Lymphocytes % 19.6 % (20.5-51.1) L 06/02/24 04:35
Monocytes % 10.8 % (1.7-9.3) H 06/02/24 04:35
Eosinophils % 3.8 % (0-6) 06/02/24 04:35
Basophils % 0.3 % (0-2) 06/02/24 04:35
Creatinine 0.7 mg/dL (0.7-1.3) 06/02/24 04:35
Vital Signs
Vital Signs
Temp Pulse Resp BP Pulse Ox
98.1 F 64 20 112/60 97
06/02/24 08:23 06/02/24 09:00 06/02/24 09:00 06/02/24 08:00 06/02/24 08:00
[2024-06-02] MEDS: ROCEPHIN 1000 MG IV (12:38)
[2024-06-02] MEDS: STERILE WATER FOR INJECTION 10 ML IV (12:38)
--- NOTE | 2024-06-02 13:02 | W.PN.GI.CBS2 ---
Today's Communication / Plan
-
advance diet
continue octreotide
IV PPI bid
Assessment / Plan
-
68-year-old male with past medical history of decompensated cirrhosis (ascites/varices), on beta-rosa and diuretics due to hepatitis C which was cured in the past, no history of encephalopathy, history of portal vein thrombosis, thrombocytopenia,
history of metastatic prostate cancer status post prostatectomy with mets to the bone currently on hormone therapy (Erleada) with undetectable PSA who presents to the ER with acute onset of hematemesis and melena asked to evaluate for the same. Last
EGD was in 2021 where he had grade 2 esophageal varices. Portal hypertensive gastropathy. Currently presents with 3 large episodes of hematemesis concerning for esophageal variceal bleed and drop in hbg.
05/31/24 EGD - Large (> 5 mm) esophageal varices, one with stigmata
of recent bleeding. Incompletely eradicated. Banded.
- Hematin (altered blood/zaoosx-lgemrt-gtwt material)
in the gastric fundus.
- Normal duodenum.
- No specimens collected.
Impression:
Upper GI bleed-> s/p EGD with large EV and stigmata of recent bleeding with eradication and banding 05/31
Cirrhosis, decompensated with history of varices/ascites-> MELD 10
Thrombocytopenia-> platelets 85
History of metastatic prostate cancer, on Erleada
Plan:
change PPI to bid IV
continue octreotide ggt
Repeat EGD set for 06/24 as outpatient
antibiotic for 7 days
ok for regular diet
hgb should be kept around 8
no ascites to tap
Oncology following
outpatient f/u with me and Dr. Agrawal
Subjective
Subjective
Date of Service: June 02, 2024
Pt sitting up in bed. No vomiting. Hungry. Has chronic rlq d/c which is mild
Objective
Data Reviewed
Laboratory Data:
Laboratory Results
06/02/24 04:35
Laboratory Results
PT 16.6 Sec (11.4-14.6) H 06/02/24 04:35
INR 1.34 06/02/24 04:35
APTT 24.1 Sec (23.4-35.0) 05/31/24 11:08
Phosphorus 4.1 mg/dl (2.5-4.5) 06/01/24 02:11
Magnesium 2.0 mg/dl (1.6-2.3) 06/02/24 04:35
Total Bilirubin 0.5 mg/dl (0.2-1.3) 06/02/24 04:35
AST 27 U/L (17-59) 06/02/24 04:35
ALT 19 U/L (0-50) 06/02/24 04:35
Alkaline Phosphatase 26 U/L (38-126) L 06/02/24 04:35
Vital Signs and I&O:
Vital Signs
Temp Pulse Resp BP Pulse Ox
97.8 F 64 20 112/60 97
06/02/24 12:02 06/02/24 09:00 06/02/24 09:00 06/02/24 08:00 06/02/24 08:00
I&O
06/01/24 06/02/24 06/03/24
06:59 06:59 06:59
Intake Total 2121.5 / 2263.2 3320.8 / 3372.5 758.5 / 758.5
Output Total 600 / 1025 1275 / 1275
Balance 1521.5 / 1238.2 2045.8 / 2097.5 758.5 / 758.5
Physical Exam
Physical Exam
HEENT: Anicteric
GI: Soft and Non Distended
Neuro: Non Focal
--- NOTE | 2024-06-02 13:18 | CM ---
Patient seen at bedside with physician and residents. Patient also present. Patient for consult with Oncology to follow up per physician. Patient pending updates on GI and plan is to transition out of the ICU per physician. Plan is for
discharge home with . CM will continue to follow for discharge planning needs.
Plan; home with VN vs home with no needs
[2024-06-02 13:47] LABS: Hematocrit 24.8 % (39.0-52.0); Hemoglobin 8.6 g/dL (13.0-18.0); Mean Corp Hgb Conc. 34.7 g/dL (33.0-37.0); Mean Corpuscular Hgb 30.6 pg (27.0-31.0); Mean Corpuscular Volume 88.3 fL (80.0-94.0); Mean Platelet Volume 12.1 fL (7.4-10.4); Platelet Count 64 10^3/uL (130-400); Red Blood Cell Count 2.81 10^6/uL (4.70-6.10); Red Cell Dist. Width 14.7 % (11.5-14.5); White Blood Cell Count 7.6 10^3/uL (4.8-10.8)
--- NOTE | 2024-06-02 16:00 | PTCARENOTE ---
pt written for telemetry status . pt to be transferred to room 336-1 , report given to receiving RN
[2024-06-02] MEDS: LIPITOR 40 MG PO (17:33)
[2024-06-02] MEDS: PROTONIX IV 40 MG IV (20:48)
[2024-06-02] MEDS: NSS (PRESERVATIVE FREE) 10 ML IV (20:48)
[2024-06-02 22:14] LABS: Hematocrit 19.8 % (39.0-52.0); Mean Corp Hgb Conc. 35.4 g/dL (33.0-37.0); Mean Corpuscular Hgb 30.6 pg (27.0-31.0); Mean Corpuscular Volume 86.5 fL (80.0-94.0); Mean Platelet Volume 12.6 fL (7.4-10.4); Platelet Count 51 10^3/uL (130-400); Red Blood Cell Count 2.29 10^6/uL (4.70-6.10); Red Cell Dist. Width 14.7 % (11.5-14.5); White Blood Cell Count 3.7 10^3/uL (4.8-10.8)
[2024-06-03] VITALS (8 sets, daily range): BP systolic 95–126; BP diastolic 52–78; PULSE 79; O2SAT 98; BMI 32.4
--- NOTE | 2024-06-03 00:22 | PTCARENOTE ---
Pt. HCT resulted at 19.8, hgb 7.0. CARLY Dougherty notified. New order rec'd for 1 unit PRBC. Plan of care ongoing.
[2024-06-03] MEDS: SANDOSTATIN 500.6 MCG IV (01:38)
--- NOTE | 2024-06-03 06:19 | W.PN.HOSP.TC ---
Addendum entered and electronically signed by Jovan Nelson MD 06/03/24 14:41:
I saw and evaluated the patient. I reviewed the resident�s note and agree with findings and plan as documented in the resident�s note.
Patient denies of having any black/blood stool
No further episode of nausea/vomiting
Have some mid sternal chest discomfort
Hematemesis --concern for upper GI bleed due to possible esophageal varices--confirmed with EGD per GI, banded--apprec input--octreotide to be discontinued today. Continue PPI diet advanced
acute blood loss anemia from bleeding esophageal varices--has hx of iron deficiency anemia--monitor hbg count and will need transfusion if HBg 7 or less.
hx of Hepatitis C cirrhosis--apprec GI--cont rocephin for SBP prophylaxis--s/p treatment for Hep C---resume Lasix, spironolactone
Hypotension secondary to blood loss--resolved--resume furosemide 40 mg daily, lisinopril 2.5 mg daily, Toprol 25 mg twice daily, spironolactone 100 mg p.o. daily
Chronic thrombocytopenia secondary to cirrhosis--Plt 64K-- would not transfuse platelets at this time--Follow CBC
Prostate cancer Dx July 2023 mets to pelvis November 2023--CT scan abdomen, done for RLQ pain not much different but shows more osseus mets--hematology/oncology assessed and could be resumed back on eralda at discharge. will f/u in office.
CAD/VA/RBBB/Hx angioplasty with stenting 07/10/2015--resume aspirin 81 mg daily, atorvastatin 40 mg every afternoon, metoprolol tartrate 25 mg twice daily-as able
DVT prophylaxis--SCDs
code status--Full code
Possible discaharge tomorrow.
Original Note:
Today's Communication/Plan
-
Chest pain will be followed up. ECG and troponin will be ordered if the pain get worsen
Assessment / Plan
Assessment / Plan
Assessment and Plan:
Impression:
The patient is a 68 year old male who presented to ER on 05/31 due vomiting blood. He vomited blood for 4 times in totally. The patient also reported having black stool at the present to ER. Patient denies history of GI bleed.The patient is not on
any blood thinners. The patient has PMH of Chronic hepatitis C complicated by cirrhosis (ascites/varices- on beta-rosa and diuretics), CAD, HCV, splenomegaly, osteopenia, thrombocytopenia, prostate cancer with mets to bone on Erleada, history
of portal vein thrombosis. GI team performed EGD on 05/31/2024 showing large grade 4 varices in the entire esophagus with an adherent clot at the GEJ at the base of one of the varices. 5 bands were successfully placed with incomplete eradication
of the varices. There was no bleeding during the procedure. Hematin was found in the gastric fundus and the body of the stomach with old clots with no obvious gastric varices. He had a abdominal CT today due abdominal pain and it did not show
any acute abdominal abnormality, but worsening osseous metastatic disease throughout the spine and pelvis was found. Oncology was consulted for assessment. Today patient reported some chest pain but not radiating and no other symptoms like SOB. His
pain will be followed up.
Assessment
#Hematemesis
Due to esophageal varices s/p banding x 5 with incomplete eradication of varices (EGD performed 05/31/2024)
- IV Fluids
-Stopped octreotide gtt by GI rec
-Continue IV PPI BID
- Advance Diet by GI
- Rocephin 1g once daily x 7 days
- Aspiration precautions
#Chest discomfort/tightness
-The patient complained some pain on his chest without radiating and symptoms like SOB.
-Can be related past-banding during EGD
-EKG and troponin will planning to be ordered if pain worsen
#Abdominal pain
-Abdominal CT: No acute abnormality in the abdomen or pelvis. Worsening osseous metastatic disease throughout the spine and pelvis.
#Pain control
Hydromorphone PRN
Hold for sedation
#Nausea
- Anti-emetics PRN (trend QTc: 513ms today)
- Hold off on additional Zofran and use Compazine if needed for nausea/vomiting
#Pulmonary:
- Incentive spirometer
- Maintain SpO2 >90-94% with supplemental O2 as needed
#Acute Blood Loss Anemia
-baseline Hb 10.5-12g/dL
-1 unite RBC transfusion was given on on 06/01 and 1 on 06/02
-Hgb level is 7.5 on 06/03
-CBC follow up transfuse if needed to keep Hb>7; avoid over-transfusing as this can cause rupture of esophageal varices
- Maintain MAP>65
#Chronic Thrombocytopenia most likely secondary to cirrhosis
(baseline plt count: 55-70)
Plt: 45 on 06/03
#Hyperglycemia
-[id number] on 06/03
- resolved
#History of metastatic prostate cancer s/p prostatectomy with bony mets currently
-On hormone therapy with Erleada before hospital admission
-Oncology recommended to restart Erleada on discharge
-Outpatient PSMA PET was recommended for appropriate restaging
#DVT
-SCDs; hold off on chemical prophylaxis for now given due acute UGIB
Anticipated Discharge: 24 - 48 hours
Subjective/Interval History
-
Date of Service: June 03, 2024
The patient was seen in his bed. He seems comfortable. Complaining about having generalized pain but feels better today. Has some chest discomfort/tightness this AM without radiating symptoms or SOB.Can be related past-banding during EGD.
Objective Data
-
Labs:
Laboratory Results
06/02/24 06/03/24
22:01 05:44
WBC 3.7 L Pending
Hgb 7.0 L Pending
Hct 19.8 L* Pending
Plt Count 51 L D Pending
Sodium Pending
Potassium Pending
Chloride Pending
Carbon Dioxide Pending
BUN Pending
Creatinine Pending
Glucose Pending
Calcium Pending
Total Bilirubin Pending
AST Pending
ALT Pending
Alkaline Phosphatase Pending
Vital Signs:
Vital Signs
Temp Pulse Resp BP Pulse Ox
99.1 F 82 18 126/78 96
06/03/24 02:45 06/03/24 02:45 06/03/24 02:45 06/03/24 02:45 06/03/24 03:09
I&O
06/01/24 06/02/24 06/03/24
06:59 06:59 06:59
Intake Total 2121.5 / 2263.2 3320.8 / 3372.5 1288.7 / 1288.7
Output Total 600 / 1025 1275 / 1275 200 / 200
Balance 1521.5 / 1238.2 2045.8 / 2097.5 1088.7 / 1088.7
Review of Systems
-
EENT: Reports No Symptoms Reported
Respiratory: Reports No Symptoms
Cardiac: Reports No Symptoms
Abdomen/GI: Reports No Symptoms and Other (See HPI )
Genitourinary: Reports No Symptoms
Musculoskeletal: Reports No Symptoms and Other (See HPI (bone met due prostat ca) )
Skin: Reports No Symptoms
Neuro: Reports No Symptoms
Physical Exam
-
General: Well Developed and Well Nourished
HEENT: Normocephalic and Atraumatic
Respiratory: Clear to Auscultation
Cardiac: Regular Rhythm and S1/S2
GI: Soft and Nontender
Musculoskeletal: No Clubbing and No Cyanosis
Skin: Warm
Neuro: Awake, Alert, Oriented and AO x 3
[2024-06-03 06:26] LABS: % Basophils 0.7 % (0-2); % Eosinophils 3.3 % (0-6); % Immature Granulocytes 0.7 % (0-0.5); % Lymphocytes 22.1 % (20.5-51.1); % Monocytes 11.4 % (1.7-9.3); % Neutrophils 61.8 % (42.2-75.2); Absolute Eosinophils 0.1 10^3/uL (0-0.7); Absolute Lymphocytes 0.7 10^3/uL (1.2-3.4); Absolute Monocytes 0.3 10^3/uL (0.1-0.6); Absolute Neutrophils 1.9 10^3/uL (1.4-6.5); Hematocrit 21.9 % (39.0-52.0); Hemoglobin 7.5 g/dL (13.0-18.0); Mean Corp Hgb Conc. 34.2 g/dL (33.0-37.0); Mean Corpuscular Hgb 30.4 pg (27.0-31.0); Mean Corpuscular Volume 88.7 fL (80.0-94.0); Mean Platelet Volume 12.6 fL (7.4-10.4); Nucleated Red Blood Cells % 0 % (-); Platelet Count 45 10^3/uL (130-400); Red Blood Cell Count 2.47 10^6/uL (4.70-6.10); Red Cell Dist. Width 14.6 % (11.5-14.5)
[2024-06-03 06:44] LABS: ALT (SGPT) 17 U/L (0-50); AST (SGOT) 20 U/L (17-59); Albumin 2.7 g/dl (3.5-5.0); Alkaline Phosphatase 28 U/L (38-126); Blood Urea Nitrogen 19 mg/dl (9-20); Calcium 7.2 mg/dl (8.4-10.2); Carbon Dioxide 22 mmol/L (22-30); Chloride 106 mmol/L (98-107); Estimated Creatinine Clearance > 125 ml/min; Glucose 123 mg/dl (70-99); Magnesium 1.9 mg/dl (1.6-2.3); Phosphorus 2.9 mg/dl (2.5-4.5); Potassium 3.5 mmol/L (3.5-5.1); Sodium 138 mmol/L (135-145); Total Bilirubin 0.5 mg/dl (0.2-1.3); eGFR > 60.00
[2024-06-03] MEDS: VITAMIN B-12 100 MCG PO (09:02)
[2024-06-03] MEDS: VITAMIN C 500 MG PO ×2 (09:02→19:53)
[2024-06-03] MEDS: OSCAL 500 + D 500 MG PO ×2 (09:03→19:53)
[2024-06-03] MEDS: ZESTRIL 2.5 MG PO (09:03)
[2024-06-03] MEDS: LOPRESSOR 25 MG PO ×2 (09:03→19:53)
[2024-06-03] MEDS: FOLVITE 0.8 MG PO (09:03)
[2024-06-03] MEDS: PROTONIX IV 40 MG IV ×2 (09:03→19:54)
[2024-06-03] MEDS: NSS (PRESERVATIVE FREE) 10 ML IV ×2 (09:04→19:54)
[2024-06-03] MEDS: DILAUDID 0.5 MG IV ×2 (09:04→13:19)
--- NOTE | 2024-06-03 09:57 | W.PN.GI.CBS2 ---
Addendum entered and electronically signed by Destin Nance, DO 06/03/24 11:17:
#Mild Chest Discomfort
Described mild chest discomfort/tightness this AM without radiating symptoms or SOB. Likely from recent post-banding during EGD given large columns of EV requiring multiple banding vs musculoskeletal. Doubt cardiac etiology.
- Continue IV PPI as below
- Consider EKG and troponins if worsen
- Discussed with hospitalist
Rest of care as outlined below.
Original Note:
Today's Communication / Plan
-
S/p 1uPRBC overnight on 06/02. No signs of recurrent bleeding, recommend stopping IV Octreotide as completed 72 hrs. Continue PPI while inpatient. See rest of care as outlined below.
Assessment / Plan
-
#Upper GI bleed-> s/p EGD with large EV and stigmata of recent bleeding with eradication and banding 05/31
#Cirrhosis, decompensated with history of varices/ascites-> MELD 10
#Thrombocytopenia-> platelets 85
#History of metastatic prostate cancer, on Erleada
68-year-old male with past medical history of decompensated cirrhosis (ascites/varices), on beta-rosa and diuretics due to hepatitis C which was cured in the past, no history of encephalopathy, history of portal vein thrombosis, thrombocytopenia,
history of metastatic prostate cancer status post prostatectomy with mets to the bone currently on hormone therapy (Erleada) with undetectable PSA who presents to the ER with acute onset of hematemesis and melena asked to evaluate for the same. Last
EGD was in 2021 where he had grade 2 esophageal varices. Portal hypertensive gastropathy. Currently presents with 3 large episodes of hematemesis concerning for esophageal variceal bleed and drop in hbg.
05/31/24 EGD - Large (> 5 mm) esophageal varices, one with stigmata
of recent bleeding. Incompletely eradicated. Banded.
- Hematin (altered blood/bdylyx-mzuytr-mbgx material)
in the gastric fundus.
- Normal duodenum.
- No specimens collected.
Impression: S/p EGD as above found to have significant EV hemorrhage with stigmata of recent bleeding s/p banding. No further signs of recurrent bleeding since his hospitalization. No other signs of HE or other decompensations and mentating
appropriately without melena.
Recommendations:
- Regular diet as tolerated
- May stop IV Octreotide gtt today as completed 72 hrs (05/31 - 06/03)
- Continue IV PPI 40 mg BiD, may transition to oral Pantoprazole 40 mg BiD for 2 weeks (for prevention of post-banding ulcers) and then once daily
- Trend Hgb with serial CBC, transfuse for goal Hgb > 7.0 as to not worsen portal HTN
- IV Ceftriaxone for 7 days given bleeding, may transition to oral abx near discharge
- He has been scheduled for a repeat EGD on 06/[address] Granda as an outpatient for EV eradication
- On home Metoprolol tartrate 25 mg BiD as patient would require NSBB for 2' ppx. Could consider Coreg as this has been well-studied in portal-HTN from decompensated cirrhosis, but defer to his [employer] and can be addressed further as an
outpatient
- Continue home diuretics. No appreciable ascites on exam or to tap on imaging
- No signs of HE given c/f EV bleed. Avoid opioids/benzos
- Has outpatient f/u with both Dr. Granda and Dr. Agrawal
- Discussed strict avoidance of all NSAIDs as outpatient
- Rest of care as per primary team
Subjective
Subjective
Date of Service: June 03, 2024
- S/p 1 uPRBC for Hgb 7.0 -> 7.5 and BUN 22 -> 19, no signs of recurrent GI bleeding
- No acute events overnight
Feeling well, resting comfortably in bed. Does note recent chest discomfort this AM, tightness without SOB or radiating symptoms. Otherwise, no bloody stools or abdominal pain.
Objective
Data Reviewed
Laboratory Data:
Laboratory Results
06/03/24 05:44
06/03/24 05:44
Laboratory Results
PT 16.6 Sec (11.4-14.6) H 06/02/24 04:35
INR 1.34 06/02/24 04:35
APTT 24.1 Sec (23.4-35.0) 05/31/24 11:08
Phosphorus 2.9 mg/dl (2.5-4.5) 06/03/24 05:44
Magnesium 1.9 mg/dl (1.6-2.3) 06/03/24 05:44
Total Bilirubin 0.5 mg/dl (0.2-1.3) 06/03/24 05:44
AST 20 U/L (17-59) 06/03/24 05:44
ALT 17 U/L (0-50) 06/03/24 05:44
Alkaline Phosphatase 28 U/L (38-126) L 06/03/24 05:44
Vital Signs and I&O:
Vital Signs
Temp Pulse Resp BP Pulse Ox
98.6 F 74 17 108/57 98
06/03/24 08:06 06/03/24 08:06 06/03/24 08:06 06/03/24 08:06 06/03/24 08:06
I&O
06/02/24 06/03/24 06/04/24
06:59 06:59 06:59
Intake Total 3320.8 / 3372.5 1788.7 / 1788.7
Output Total 1275 / 1275 800 / 800
Balance 2045.8 / 2097.5 988.7 / 988.7
Physical Exam
Physical Exam
HEENT: Anicteric and Moist mucous membranes
Cardiology: Normal Sinus Rhythm
Pulmonary: Other (Normal WOB on room air)
GI: Soft, Distended, Non Tender and Other (No appreciable fluid wave, not tense)
Extremities: No Edema
Neuro: Non Focal
--- NOTE | 2024-06-03 10:35 | CM ---
Patient seen at bedside with patient. Patient asking about hemoglobin and CM updated nursing. CM will update physician. CM will continue to follow for discharge planning needs.
Plan; pending physician assessment; home with no needs vs home with VN
[2024-06-03] MEDS: ROCEPHIN 1000 MG IV (13:10)
[2024-06-03] MEDS: STERILE WATER FOR INJECTION 10 ML IV (13:11)
[2024-06-03] MEDS: LIPITOR 40 MG PO (17:29)
[2024-06-03 18:28] LABS: Lipase 91 U/L (23-300)
[2024-06-03] MEDS: ROXICODONE 5 MG PO (18:35)
[2024-06-03] MEDS: ULTRAM 25 MG PO (20:40)
[2024-06-03 22:05] LABS: Transferrin 199 mg/dL (200-360)
[2024-06-04 03:10] VITALS: BP 102/43
[2024-06-04 07:00] VITALS: BP 111/66
[2024-06-04] MEDS: PROTONIX IV 40 MG IV (08:49)
[2024-06-04] MEDS: NSS (PRESERVATIVE FREE) 10 ML IV (08:49)
[2024-06-04] MEDS: OSCAL 500 + D 500 MG PO (08:50)
[2024-06-04] MEDS: LOPRESSOR 25 MG PO (08:50)
[2024-06-04] MEDS: ZESTRIL 2.5 MG PO (08:50)
[2024-06-04] MEDS: VITAMIN B-12 100 MCG PO (08:50)
[2024-06-04] MEDS: VITAMIN C 500 MG PO (08:50)
[2024-06-04] MEDS: FOLVITE 0.8 MG PO (08:50)
[2024-06-04 08:56] LABS: % Basophils 0.7 % (0-2); % Eosinophils 4.1 % (0-6); % Immature Granulocytes 0.7 % (0-0.5); % Lymphocytes 23.7 % (20.5-51.1); % Neutrophils 57.8 % (42.2-75.2); Absolute Eosinophils 0.1 10^3/uL (0-0.7); Absolute Lymphocytes 0.6 10^3/uL (1.2-3.4); Absolute Monocytes 0.4 10^3/uL (0.1-0.6); Absolute Neutrophils 1.6 10^3/uL (1.4-6.5); Hematocrit 21.8 % (39.0-52.0); Hemoglobin 7.6 g/dL (13.0-18.0); Mean Corp Hgb Conc. 34.9 g/dL (33.0-37.0); Mean Corpuscular Hgb 31.1 pg (27.0-31.0); Mean Corpuscular Volume 89.3 fL (80.0-94.0); Mean Platelet Volume 12.8 fL (7.4-10.4); Nucleated Red Blood Cells % 0 % (-); Platelet Count 42 10^3/uL (130-400); Red Blood Cell Count 2.44 10^6/uL (4.70-6.10); Red Cell Dist. Width 14.6 % (11.5-14.5); White Blood Cell Count 2.7 10^3/uL (4.8-10.8)
[2024-06-04] MEDS: ROXICODONE 5 MG PO (09:02)
[2024-06-04 10:03] LABS: ALT (SGPT) 16 U/L (0-50); AST (SGOT) 19 U/L (17-59); Albumin 2.9 g/dl (3.5-5.0); Alkaline Phosphatase 30 U/L (38-126); Blood Urea Nitrogen 15 mg/dl (9-20); Calcium 7.3 mg/dl (8.4-10.2); Carbon Dioxide 26 mmol/L (22-30); Chloride 104 mmol/L (98-107); Estimated Creatinine Clearance > 125 ml/min; Glucose 111 mg/dl (70-99); Potassium 3.2 mmol/L (3.5-5.1); Sodium 138 mmol/L (135-145); Total Bilirubin 0.5 mg/dl (0.2-1.3); Total Protein 5.2 g/dl (6.3-8.2); eGFR > 60.00
[2024-06-04 11:00] VITALS: BP 128/59
[2024-06-04] MEDS: ROCEPHIN 1000 MG IV (11:23)
[2024-06-04] MEDS: STERILE WATER FOR INJECTION 10 ML IV (11:23)
[2024-06-04 12:09] VITALS: BP 128/59
--- NOTE | 2024-06-04 13:29 | W.PN.GI.CBS2 ---
Today's Communication / Plan
-
DC today
OP f/u with Dr. Granda as scheduled
Assessment / Plan
-
#Upper GI bleed-> s/p EGD with large EV and stigmata of recent bleeding with eradication and banding 05/31
#Cirrhosis, decompensated with history of varices/ascites-> MELD 10
#Thrombocytopenia-> platelets 85
#History of metastatic prostate cancer, on Erleada
68-year-old male with past medical history of decompensated cirrhosis (ascites/varices), on beta-rosa and diuretics due to hepatitis C which was cured in the past, no history of encephalopathy, history of portal vein thrombosis, thrombocytopenia,
history of metastatic prostate cancer status post prostatectomy with mets to the bone currently on hormone therapy (Erleada) with undetectable PSA who presents to the ER with acute onset of hematemesis and melena asked to evaluate for the same. Last
EGD was in 2021 where he had grade 2 esophageal varices. Portal hypertensive gastropathy. Currently presents with 3 large episodes of hematemesis concerning for esophageal variceal bleed and drop in hbg.
05/31/24 EGD - Large (> 5 mm) esophageal varices, one with stigmata
of recent bleeding. Incompletely eradicated. Banded.
- Hematin (altered blood/qyuqry-nciolv-iego material)
in the gastric fundus.
- Normal duodenum.
- No specimens collected.
Impression: S/p EGD as above found to have significant EV hemorrhage with stigmata of recent bleeding s/p banding. No further signs of recurrent bleeding since his hospitalization. No other signs of HE or other decompensations and mentating
appropriately without melena.
Recommendations:
- Regular diet as tolerated
- off Octreotide completed 72 hrs (05/31 - 06/03)
- Continue IV PPI 40 mg BiD, may transition to oral Pantoprazole 40 mg BiD for 2 weeks (for prevention of post-banding ulcers) and then once daily
- Trend Hgb with serial CBC, transfuse for goal Hgb > 7.0 as to not worsen portal HTN
- IV Ceftriaxone for 7 days given bleeding, may transition to oral abx near discharge
- He has been scheduled for a repeat EGD on 06/[address] Granda as an outpatient for EV eradication
- On home Metoprolol tartrate 25 mg BiD as patient would require NSBB for 2' ppx. Could consider Coreg as this has been well-studied in portal-HTN from decompensated cirrhosis, but defer to his [employer]king [employer] and can be addressed further as an
outpatient
- Continue home diuretics. No appreciable ascites on exam or to tap on imaging
- No signs of HE given c/f EV bleed. Avoid opioids/benzos
- Has outpatient f/u with both Dr. Granda and Dr. Agrawal
- Discussed strict avoidance of all NSAIDs as outpatient
-OK FOR DC TODAY DW
Subjective
Subjective
Date of Service: June 04, 2024
no further melena, hemoglobin remained stable. anxious to go home, tolerating diet
Objective
Data Reviewed
Laboratory Data:
Laboratory Results
06/04/24 06:53
06/04/24 06:53
Laboratory Results
PT 16.6 Sec (11.4-14.6) H 06/02/24 04:35
INR 1.34 06/02/24 04:35
APTT 24.1 Sec (23.4-35.0) 05/31/24 11:08
Phosphorus 2.9 mg/dl (2.5-4.5) 06/03/24 05:44
Magnesium 1.9 mg/dl (1.6-2.3) 06/03/24 05:44
Total Bilirubin 0.5 mg/dl (0.2-1.3) 06/04/24 06:53
AST 19 U/L (17-59) 06/04/24 06:53
ALT 16 U/L (0-50) 06/04/24 06:53
Alkaline Phosphatase 30 U/L (38-126) L 06/04/24 06:53
Lipase 91 U/L (23-300) 06/03/24 05:44
Vital Signs and I&O:
Vital Signs
Temp Pulse Resp BP Pulse Ox
98.3 F 68 12 128/59 98
06/04/24 11:00 06/04/24 11:00 06/04/24 11:00 06/04/24 11:00 06/04/24 11:00
I&O
06/03/24 06/04/24 06/05/24
06:59 06:59 06:59
Intake Total 1788.7 / 1788.7 840 / 840
Output Total 800 / 800 300 / 300
Balance 988.7 / 988.7 540 / 540
Physical Exam
Physical Exam
Cardiology: Normal Sinus Rhythm
Pulmonary: Clear
GI: Soft, Non Distended, Non Tender and Normal Bowel Sounds
[2024-06-04 13:44] VITALS: BP 130/60
--- NOTE | 2024-06-04 14:20 | W.PN.HOSP.TC ---
Today's Communication/Plan
-
d/c home
Assessment / Plan
Assessment / Plan
Hematemesis from Esophageal varices
-confirmed with EGD per GI, banded
-appreciate input
-Monitor on BID PPI for 2 weeks per GI recommendation, patient to have f/u repeat EGD with GI office next month.
Acute blood loss anemia from bleeding esophageal varices
hx of iron deficiency anemia
-monitor hbg count and will need transfusion if HBg 7 or less.
-provide iron pills to take at home
hx of Hepatitis C cirrhosis
-appreciate GI
-cont Rocephin for SBP prophylaxis
-s/p treatment for Hep C
-can not be restarted on aldactone 100mg/d with soft BP, needs to be resumed with PCP if BP improves
Hypotension secondary to blood loss
-Resumed back lasix/toprol and lisinopril
Chronic thrombocytopenia secondary to cirrhosis
Prostate cancer Dx July 2023 mets to pelvis November 2023
-CT scan abdomen, done for RLQ pain not much different but shows more osseus mets
-hematology/oncology assessed and could be resumed back on eralda at discharge. will need f/u in office.
CAD/AK/RBBB/Hx angioplasty with stenting 07/10/2015
-ASA to be held for week or so with sev varices, could be resumed after GI f/u
-atorvastatin 40 mg every afternoon, metoprolol tartrate 25 mg twice daily-as able
DVT prophylaxis--SCDs
code status--Full code
More than 30 minutes spent in discharge including
Final examination of the patient
Summarizing hospital stay
Instructions for continuing care to all relevant caregivers
Preparation of discharge records, prescriptions, and referral forms
Total time spent (in minutes): 38 mins
Anticipated Discharge: Today
Subjective/Interval History
-
Date of Service: June 04, 2024
no issues overnight
denies of problems
Objective Data
-
Labs:
Laboratory Results
06/04/24
06:53
WBC 2.7 L
Hgb 7.6 L
Hct 21.8 L
Plt Count 42 L
Sodium 138
Potassium 3.2 L
Chloride 104
Carbon Dioxide 26
BUN 15
Creatinine 0.6 L
Glucose 111 H
Calcium 7.3 L
Total Bilirubin 0.5
AST 19
ALT 16
Alkaline Phosphatase 30 L
Vital Signs:
Vital Signs
Temp Pulse Resp BP Pulse Ox
98.4 F 70 16 130/60 98
06/04/24 13:44 06/04/24 13:44 06/04/24 13:44 06/04/24 13:44 06/04/24 13:44
I&O
06/03/24 06/04/24 06/05/24
06:59 06:59 06:59
Intake Total 1788.7 / 1788.7 840 / 840
Output Total 800 / 800 300 / 300
Balance 988.7 / 988.7 540 / 540
Review of Systems
-
Respiratory: Reports No Symptoms
Cardiac: Reports No Symptoms
Abdomen/GI: Reports No Symptoms
Physical Exam
-
General: No Apparent Distress and Comfortable
HEENT: Negative Oxygen
Respiratory: Clear to Auscultation
Cardiac: Regular Rhythm and S1/S2; Negative Murmur or Rub
GI: Soft, Nontender, Nondistended and Normal Bowel Sounds
Musculoskeletal: No Edema
Neuro: Awake, Alert, Oriented, No Motor Deficits and Nonfocal/Grossly Intact
Psych: Calm
--- NOTE | 2024-06-04 15:57 | CM ---
MD entered order for discharge.
Pt said he was ready for dc.
He said his Shirin will drive him home.
Offered VN he declined.
IMM explained to pt . He said he did not have medicare . He was covered by his .
PLAN Home no needs
== END 2024-06-04 14:07 | disposition home or self-care (01) | DRG 432 ==
LOC: 3 WEST ACU 13:30
PROVIDERS: Clinical Nurse Specialist Family Health; Nurse Practitioner Adult Health; ADMITTING PHYSICIAN Hospitalist; ATTENDING PHYSICIAN Hospitalist; CONSULT PHYSICIAN Internal Medicine Critical Care Medicine; CONSULT PHYSICIAN Internal Medicine Hematology & Oncology; EMERGENCY PHYSICIAN Student in an Organized Health Care Education/Training Program; FAMILY PHYSICIAN Family Medicine; OTHER PHYSICIAN Internal Medicine
PROC: 06L38CZ Occlusion of Esophageal Vein with Extraluminal Device, Via Natural or Artificial Opening Endoscopic (ICD-10-PCS; 2024-05-31)
PROC: 30233N1 Transfusion of Nonautologous Red Blood Cells into Peripheral Vein, Percutaneous Approach (ICD-10-PCS; 2024-06-01)
DX: K74.69 Other cirrhosis of liver (principal); I85.11 Secondary esophageal varices with bleeding; C79.51 Secondary malignant neoplasm of bone; D62 Acute posthemorrhagic anemia; R18.8 Other ascites; K76.6 Portal hypertension; B18.2 Chronic viral hepatitis C; I10 Essential (primary) hypertension; E78.00 Pure hypercholesterolemia, unspecified; I25.10 Atherosclerotic heart disease of native coronary artery without angina pectoris; D69.59 Other secondary thrombocytopenia; I95.9 Hypotension, unspecified; K72.10 Chronic hepatic failure without coma; D50.9 Iron deficiency anemia, unspecified; I45.10 Unspecified right bundle-branch block; I25.2 Old myocardial infarction; Z95.5 Presence of coronary angioplasty implant and graft; Z79.02 Long term (current) use of antithrombotics/antiplatelets; Z90.79 Acquired absence of other genital organ(s); Z85.46 Personal history of malignant neoplasm of prostate; Z79.899 Other long term (current) drug therapy; Z79.890 Hormone replacement therapy; Z79.82 Long term (current) use of aspirin
CPT/HCPCS: 71045; 74177; 80053; 82728; 83036; 83540; 83550; 83690; 83735; 84100; 84466; 85014; 85018; 85025; 85027; 85045; 85610; 85730; 86850; 86900; 86901; 86920; 93005; 96374; 96375; 97116; 97162; 97530; 99291; P9016; Q9967

== ENCOUNTER 2024-06-24 06:22 | Day surgery (SDC) | payer OTHER, MEDICARE, SELFPAY ==
[2024-06-24 10:20] VITALS: BP 147/66; BMI 33.9
[2024-06-24 11:39] VITALS: BP 148/82
[2024-06-24 11:45] VITALS: BP 152/78
[2024-06-24 12:00] VITALS: BP 145/87
[2024-06-24 12:15] VITALS: BP 154/81
[2024-06-24 12:30] VITALS: BP 159/84
[2024-06-24] MEDS: CARAFATE SUSPENSION 1 GM PO (12:53)
[2024-06-24] MEDS: ULTRAM 50 MG PO (13:31)
== END 2024-06-24 13:41 | disposition home or self-care (01) ==
LOC: SDS 06:22
PROVIDERS: ATTENDING PHYSICIAN Internal Medicine
DX: I85.00 Esophageal varices without bleeding (principal); K31.89 Other diseases of stomach and duodenum
CPT/HCPCS: 43244; 43239; 88305; 88342

== ENCOUNTER 2024-08-01 06:33 | Day surgery (SDC) | payer OTHER, MEDICARE, SELFPAY | END 2024-08-01 15:27 | disposition home or self-care (01) | LOC: GI 06:33 | PROVIDERS: ATTENDING PHYSICIAN Internal Medicine | DX: K22.2 Esophageal obstruction (principal); I85.00 Esophageal varices without bleeding; K31.7 Polyp of stomach and duodenum | CPT/HCPCS: 43239; 88305 ==

== ENCOUNTER → 2024-10-26 14:44 | Outpatient (REF) | payer OTHER, MEDICARE, SELFPAY | LOC: HWRCS 14:44 | PROVIDERS: ATTENDING PHYSICIAN Internal Medicine Cardiovascular Disease; FAMILY PHYSICIAN Student in an Organized Health Care Education/Training Program | DX: R01.1 Cardiac murmur, unspecified (principal) | CPT/HCPCS: 93306 ==

== ENCOUNTER 2024-11-02 06:26 | Day surgery (SDC) | payer OTHER, MEDICARE, SELFPAY | END 2024-11-02 11:28 | disposition home or self-care (01) | LOC: GI 06:26 | PROVIDERS: ATTENDING PHYSICIAN Internal Medicine | DX: K92.1 Melena (principal); K57.30 Diverticulosis of large intestine without perforation or abscess without bleeding; K64.8 Other hemorrhoids | CPT/HCPCS: 45378 ==

== ENCOUNTER → 2025-03-31 10:41 | Outpatient (REF) | payer OTHER, MEDICARE, SELFPAY ==
[2025-03-31 12:41] LABS: Hematocrit 34.0 % (39.0-52.0); Hemoglobin 11.1 g/dL (13.0-18.0); Mean Corp Hgb Conc. 32.6 g/dL (33.0-37.0); Mean Corpuscular Volume 86.1 fL (80.0-94.0); Nucleated Red Blood Cells % 0 % (-); Platelet Count 53 10^3/uL (130-400); Red Cell Dist. Width 14.3 % (11.5-14.5)
[2025-03-31 12:56] LABS: ALT (SGPT) 15 U/L (0-50); AST (SGOT) 24 U/L (17-59); Albumin 4.2 g/dl (3.5-5.0); Alkaline Phosphatase 35 U/L (38-126); Blood Urea Nitrogen 19 mg/dl (9-20); Calcium 8.8 mg/dl (8.4-10.2); Carbon Dioxide 28 mmol/L (22-30); Chloride 105 mmol/L (98-107); Glucose 115 mg/dl (70-99); Potassium 4.8 mmol/L (3.5-5.1); Sodium 139 mmol/L (135-145); Total Protein 7.1 g/dl (6.3-8.2); eGFR > 60.00
[2025-03-31 13:02] LABS: PSA, Total - Diagnostic 0.32 ng/ml (0.0-4.0)
== END ==
LOC: HWRAD 10:41
PROVIDERS: ATTENDING PHYSICIAN Internal Medicine Transplant Hepatology; FAMILY PHYSICIAN Family Medicine; REFERRING PHYSICIAN Internal Medicine Hematology & Oncology
DX: D61.818 Other pancytopenia (principal); D50.9 Iron deficiency anemia, unspecified; D51.3 Other dietary vitamin B12 deficiency anemia; C61 Malignant neoplasm of prostate; C79.51 Secondary malignant neoplasm of bone; Z15.03 Genetic susceptibility to malignant neoplasm of prostate; R19.7 Diarrhea, unspecified; B19.20 Unspecified viral hepatitis C without hepatic coma; K74.69 Other cirrhosis of liver
CPT/HCPCS: 36415; 76700; 80053; 84153; 85025; 93975

== ENCOUNTER → 2025-07-19 09:55 | Outpatient (REF) | payer OTHER, SELFPAY ==
[2025-07-19 11:59] LABS: Hematocrit 36.5 % (39.0-52.0); Hemoglobin 11.7 g/dL (13.0-18.0); Mean Corp Hgb Conc. 32.1 g/dL (33.0-37.0); Mean Corpuscular Volume 89.9 fL (80.0-94.0); Nucleated Red Blood Cells % 0 % (-); Red Cell Dist. Width 14.3 % (11.5-14.5)
[2025-07-19 12:10] LABS: ALT (SGPT) 17 U/L (0-50); AST (SGOT) 22 U/L (17-59); Albumin 4.1 g/dl (3.5-5.0); Alkaline Phosphatase 35 U/L (38-126); Blood Urea Nitrogen 23 mg/dl (9-20); Calcium 9.0 mg/dl (8.4-10.2); Carbon Dioxide 31 mmol/L (22-30); Chloride 102 mmol/L (98-107); Glucose 111 mg/dl (70-99); Potassium 4.7 mmol/L (3.5-5.1); Sodium 136 mmol/L (135-145); Total Protein 7.2 g/dl (6.3-8.2); eGFR > 60.00
[2025-07-19 12:39] LABS: PSA, Total - Diagnostic 1.95 ng/ml (0.0-4.0)
[2025-07-19 13:01] LABS: Platelet Count 59 10^3/uL (130-400)
== END ==
LOC: HWLAB 09:55
PROVIDERS: ATTENDING PHYSICIAN Internal Medicine Hematology & Oncology; FAMILY PHYSICIAN Family Medicine
DX: D61.818 Other pancytopenia (principal); D50.9 Iron deficiency anemia, unspecified; D51.3 Other dietary vitamin B12 deficiency anemia; C61 Malignant neoplasm of prostate; C79.51 Secondary malignant neoplasm of bone; Z15.03 Genetic susceptibility to malignant neoplasm of prostate; R19.7 Diarrhea, unspecified
CPT/HCPCS: 36415; 80053; 84153; 85025